=== PATIENT | female | born 1980 | race Caucasian/White ===

== ENCOUNTER 2023-08-18 10:53 | Outpatient (AMB) | payer OTHER, SELFPAY ==
--- NOTE | 2023-08-18 11:42 | A.OFFVIS_ITS ---
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 She is a 43-year-old female who presents to the office for evaluation of 2 separate issues. The 1st being neck pain radiating down to both of her arms about to the level of her elbow with reports of numbness of her hands with feelings of weakness that has been going on for about 10 months. She reports fine motor movement issues as well. She underwent some basic conservative treatment in the form of tincture of time, [id number] pain medications, tramadol as well as a cortisone shot and physical therapy. Nothing seem to be helping and it has been only getting worse over the last year. She reports balance issues as well. She has an MRI done at [facility] showing moderate to severe spinal cord compression at C4-5 as well as disc degeneration at C5-6. The 2nd issue is that she has had a longstanding problem with pain in her back going into her legs, initially was just on the right side but now has progressed to be bilateral. It is aggravated with standing and walking and goes away when she sits down. Through the years she has been through neonatal intensive care nurse, cortisone injections, PT and medication trials etc. She was scheduled to have surgery twice with Dr. Bauer at [facility] but this was canceled because of anemia that she developed. It is unclear what the source of the anemia was but it was an iron deficiency anemia that has now come back to baseline at and reportedly been stable for the last 6 months. She wants to see if there is any chance we could offer her surgery on that. She has an MRI done at [facility] showing progressing lumbar stenosis at L2-3 moderate L4-5 severe. PMH: She has a history of osteoarthritis, tendinitis in her left shoulder, anemia of unknown source, she had apparently had numbers hemoglobin as low as 8 at 1 point but it has come back up on its own and has been stable for the last 6 months. She has history of anxiety, bipolar and borderline personality disorder., history of , hypothyroidism Social hx: She does not smoke Medications: Tramadol, Lyrica, diclofenac, Calcitrol, iron, vitamin-C, hydroxychloroquine, Colace, levothyroxine, Salonpas patches Allergies: None Physical exam: She walks with a cane with an antalgic gait, motor examination is difficult secondary to pain with movement all over her body. There is some weakness of her right hand. Reflexes are normal, no Pabon's, no clonus. She does have some limitations with getting out of a chair secondary to pain. Imaging review: 2 images to review, the 1st being cervical spine MRI done in May of 2023 at [facility] in this shows reversal of the normal lordotic curvature of the cervical spine with moderate to severe central canal stenosis and bilateral foraminal stenosis at C4-5, there is also moderate disc degeneration and foraminal narrowing at C5-6. There is no cord signal change. The 2nd study is done at [facility] done in 2022 in this is a lumbar MRI showing congenitally narrow spinal canal with moderate to severe stenosis, worse on the left secondary to disc bulge at L2-3, and severe stenosis at L4-5. Impression: 43-year-old female presents to the office today for evaluation of 1 year of neck pain radiating down into her arms with feelings of weakness and numbness in her hands who has moderate to severe stenosis at C4-5 and bilateral foraminal stenosis at C5-6. This is something typically Dr. Berrios would offer either anterior cervical fusion versus total disc arthroplasty. Because of the feelings of numbness of the hands with fine motor movement symptom, I think C4-5 is probably the main symptom generator, but it is hard to ignore C5-6 as well as that can give symptoms down into the hands. I will speak to Dr. Berrios and show him the MRI get back to the patient. We did discuss risks, benefits of surgery including but not limited to persistent neurological symptoms, persistent neck pain, vocal hoarseness, dysphagia, neck pain, hardware complications, injury to neck vessels etc.. The 2nd issue we discussed is her neurogenic claudication secondary stenosis at L2-3 and L4-5. She has been offered surgery on this at [facility], but they have been putting it off due to anemia. She is frustrated because she called the mid back and told him that things are stable now when she would like to proceed, but they have been uncooperative with rescheduling for her. She is interested to see if Dr. Berrios will consider this. I think because of the progression in the severity of the stenosis he would likely offer her decompression at both the L2-3 and the L4-5 level. We did discuss the risks and benefits of this as well. Obviously we would like to treat the neck 1st because of the spinal cord compression. Once I have a chance to speak with Dr. Berrios I will finalize the plans with the patient regarding these 2 issues. Thank you for allowing us to care for your patient. The total time spent with this visit with this patient was 65 minutes reviewing history, physical exam, cervical and lumbar imaging review, and implementation of treatment plan or further diagnostic testing Chaim Berrios MD,PhD [facility] Coding Level of Care Code New Pt Level 5 (19091) Diagnoses Cervical radiculopathy M54.12 Lumbar stenosis M48.061
== END 2023-08-18 12:44 | disposition home or self-care (01) ==
PROVIDERS: PCP Physician Assistant; Referring Provider Physician Assistant; Visit Provider Physician Assistant
DX: M54.12 Radiculopathy, cervical region (principal); M48.061 Spinal stenosis, lumbar region without neurogenic claudication
CPT/HCPCS: 99205

== ENCOUNTER → 2023-08-18 10:53 | Outpatient (BNVA) | payer OTHER, SELFPAY | PROVIDERS: PCP Physician Assistant; Referring Provider Physician Assistant; Visit Provider Physician Assistant ==

== ENCOUNTER → 2023-10-10 | Outpatient (BNV) | payer OTHER, SELFPAY | PROVIDERS: PCP Physician Assistant; Visit Provider Internal Medicine | DX: Z01.818 Encounter for other preprocedural examination (principal); M54.12 Radiculopathy, cervical region | CPT/HCPCS: 93010 ==

== ENCOUNTER 2023-10-17 14:56 | Outpatient (AMB) | payer OTHER, SELFPAY ==
--- NOTE | 2023-10-17 15:04 | HO.SPINEOV ---
Intake Intake Visit Reasons: Meet Dr. Berrios/discuss surgery Intake Note: is here today to discuss surgical options. 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 We went over the scheduled anterior diskectomy and fusion. I described the procedure, possible complications and expected postoperative course. All questions were answered. We also briefly discussed the lumbar pathology that needs to be addressed. The plan is to schedule her for lumbar surgery after her 1st postoperative visit following the cervical fusion. Rich Berrios MD, PhD Spine Fellowship Trained Neurosurgeon Director, [facility] Coding Level of Care Code Est Pt Level 3 (75379) Diagnoses Cervical radiculopathy M54.12
== END 2023-10-17 16:13 | disposition home or self-care (01) ==
PROVIDERS: PCP Physician Assistant; Visit Provider Neurological Surgery
DX: M54.12 Radiculopathy, cervical region (principal)
CPT/HCPCS: 99213

== ENCOUNTER → 2023-10-17 14:56 | Outpatient (BNVA) | payer OTHER, SELFPAY | PROVIDERS: PCP Physician Assistant; Visit Provider Neurological Surgery | DX: M54.12 Radiculopathy, cervical region (principal) | CPT/HCPCS: 99212 ==

== ENCOUNTER 2023-10-24 05:59 | Day surgery (SDC) | payer OTHER, SELFPAY ==
--- NOTE | 2023-10-10 | ECG_ITS ---
Test Reason : PREOP Blood Pressure : / mmHG Vent. Rate : 065 BPM Atrial Rate : 065 BPM P-R Int : 158 ms QRS Dur : 070 ms QT Int : 384 ms P-R-T Axes : 046 011 007 degrees QTc Int : 399 ms Normal sinus rhythm with sinus arrhythmia Low voltage QRS Borderline ECG No previous ECGs available Referred By: Rocio Velez Electronically Signed By:SANAM BAI
[2023-10-10 13:47] VITALS: BP 120/71; PULSE 79; RESP 18; O2SAT 99; BMI 34.9
--- NOTE | 2023-10-10 13:57 | HO.ANESPROP2 ---
Documented by User: Rocio Velez NP 10/20/23 11:14 HPI - Anesthesia Eval Consult details Narrative: 43yo F for C4-5 Ant Cerv Discectomy w/ fusion, 10/24/23 No recent illness No CP/SOB with minimal activity. Limited to pain Tramadol for pain PMFSH Active Problems Active Problems: All Active Problems (Updated 10/10/23 @ 13:36 by Velvet Restrepo RN) Lumbar stenosis (Acute) Cervical radiculopathy (Acute) Past Medical History Medical History History of headache Numbness Murmur Osteoarthritis Bipolar 1 disorder Cervicalgia Spinal stenosis Depression Borderline personality disorder Constipation Low vitamin D level Anemia Persistent moderate somatic symptom disorder Class II obesity Sleep disturbance Anxiety Thyroid disease Back pain Family History Family history of problems with anesthesia: No Surgical History Surgical History H/O colonoscopy Hx of section History of Problems with Anesthesia: No Social History Social History Are you a primary child care specialist to a significant other at home: No Do you presently have visiting nurse or other home services: No Patient Tobacco Use Status: Former Tobacco user Quit Date: 2019 Use of substances other than those prescribed or required for medical reasons: No Have you been hit, kicked, punched, or otherwise hurt by someone within the past year? If so, by whom?: No Are you DNR?: No Advance Directives: No Advance Directives Information Provided: Yes Advance Directives on File: No Recently lost weight without trying: No Eating poorly because of decreased appetite: No Nutrition Risks: No Nutritional Risk Patient : No : No Poor oral hygiene: No Meds Allergies Allergy/AdvReac Type Severity Reaction Status Date / Time No Known Allergies Allergy Verified 10/24/23 06:11 Home Medications Medication Instructions Recorded Confirmed Last Taken Type calcitriol 0.25 mcg capsule 0.5 mcg PO DAILY 10/09/23 10/10/23 Unknown History diclofenac sodium 1 % topical gel 2 g topical BID 10/09/23 10/10/23 Unknown History docusate sodium 100 mg capsule 100 mg PO BID 10/09/23 10/10/23 Unknown History ferrous gluconate 324 mg (38 mg 324 mg PO QAM 10/09/23 10/10/23 Unknown History iron) tablet polyethylene glycol 3350 17 gram 17 g PO DAILY 10/09/23 10/10/23 Unknown History oral powder packet acetaminophen 500 mg tablet 1,000 mg PO TID PRN Pain 10/10/23 10/10/23 Unknown History ascorbic acid (vitamin C) 500 mg 500 mg PO DAILY 10/10/23 10/10/23 Unknown History tablet (Vitamin C) bupropion HCl 150 mg 24 hr tablet, 150 mg PO QAM 10/10/23 10/10/23 Unknown History extended release hydroxychloroquine 200 mg tablet 200 mg PO BID 10/10/23 10/10/23 Unknown History levothyroxine 137 mcg tablet 137 mcg PO DAILY 10/10/23 10/24/23 10/24/23 History naloxone 4 mg/actuation nasal spray 4 mg intranasal DAILY PRN Opioid 10/10/23 10/10/23 Unknown History Overdose pregabalin 150 mg capsule 150 mg PO BID 10/10/23 10/10/23 Unknown History psyllium 1 packet PO DAILY 10/10/23 10/10/23 Unknown History quetiapine 25 mg tablet 25 mg PO BEDTIME 10/10/23 10/10/23 Unknown History tramadol 50 mg tablet 50 mg PO QID PRN pain 10/10/23 10/10/23 Unknown History Exam Height,Weight and Vital Signs: Height 5 ft 2 in Weight 86.636 kg Last Vital Signs Pulse 79 10/10/23 13:47 Resp 18 10/10/23 13:47 BP 120/71 10/10/23 13:47 Pulse Ox 99 10/10/23 13:47 O2 Del Method Room Air 10/10/23 13:47 Airway Mallampati Class: I TM Dist: >3cm Neck ROM: Limited Loose/Missing/Broken Teeth: No Heart: RRR Lungs: CTAB Assessment and Plan Assessment Anesthesia Assessment: Anesthesia Plan Discussed and PAT Visit Final Anesthetic Review Family History of Problems with Anesthesia: No History of Problems with Anesthesia: No Documented by User: Sheldon Solitario MD 10/24/23 08:09 FOR[facility]LY [facility], [facility] Past Medical History Medical History History of headache Numbness Murmur Osteoarthritis Bipolar 1 disorder Cervicalgia Spinal stenosis Depression Borderline personality disorder Constipation Low vitamin D level Anemia Persistent moderate somatic symptom disorder Class II obesity Sleep disturbance Anxiety Thyroid disease Back pain Surgical History Surgical History H/O colonoscopy Hx of section Social History Social History Are you a primary child care specialist to a significant other at home: No Do you presently have visiting nurse or other home services: No Patient Tobacco Use Status: Former Tobacco user Quit Date: 2019 Use of substances other than those prescribed or required for medical reasons: No Have you been hit, kicked, punched, or otherwise hurt by someone within the past year? If so, by whom?: No Are you DNR?: No Advance Directives: No Advance Directives Information Provided: Yes Advance Directives on File: No Recently lost weight without trying: No Eating poorly because of decreased appetite: No Nutrition Risks: No Nutritional Risk Patient : No : No Poor oral hygiene: No Meds Allergies Allergy/AdvReac Type Severity Reaction Status Date / Time No Known Allergies Allergy Verified 10/24/23 06:11 Home Medications Medication Instructions Recorded Confirmed Last Taken Type calcitriol 0.25 mcg capsule 0.5 mcg PO DAILY 10/09/23 10/10/23 Unknown History diclofenac sodium 1 % topical gel 2 g topical BID 10/09/23 10/10/23 Unknown History docusate sodium 100 mg capsule 100 mg PO BID 10/09/23 10/10/23 Unknown History ferrous gluconate 324 mg (38 mg 324 mg PO QAM 10/09/23 10/10/23 Unknown History iron) tablet polyethylene glycol 3350 17 gram 17 g PO DAILY 10/09/23 10/10/23 Unknown History oral powder packet acetaminophen 500 mg tablet 1,000 mg PO TID PRN Pain 10/10/23 10/10/23 Unknown History ascorbic acid (vitamin C) 500 mg 500 mg PO DAILY 10/10/23 10/10/23 Unknown History tablet (Vitamin C) bupropion HCl 150 mg 24 hr tablet, 150 mg PO QAM 10/10/23 10/10/23 Unknown History extended release hydroxychloroquine 200 mg tablet 200 mg PO BID 10/10/23 10/10/23 Unknown History levothyroxine 137 mcg tablet 137 mcg PO DAILY 10/10/23 10/24/23 10/24/23 History naloxone 4 mg/actuation nasal spray 4 mg intranasal DAILY PRN Opioid 10/10/23 10/10/23 Unknown History Overdose pregabalin 150 mg capsule 150 mg PO BID 10/10/23 10/10/23 Unknown History psyllium 1 packet PO DAILY 10/10/23 10/10/23 Unknown History quetiapine 25 mg tablet 25 mg PO BEDTIME 10/10/23 10/10/23 Unknown History tramadol 50 mg tablet 50 mg PO QID PRN pain 10/10/23 10/10/23 Unknown History Exam Airway Loose/Missing/Broken Teeth: Yes Assessment and Plan Final Anesthetic Review NPO: Yes ASA Class: II Final Preanesthetic Review: No Changes in Pt Med Stat, Meds/Allgs Chart Reviewed, Consent Obtained/Reviewed and Anes Risks/Benef Reviewed Patient Risk: Low Procedure Risk: Low Anesthetic Plan Anesthetic Plan: GA Disposition: Standard PACU
[2023-10-10 15:17] LABS: Anion Gap 11 (12-20); Blood Urea Nitrogen 11 mg/dL (9-16); Calcium 9.4 mg/dL (8.4-10.2); Carbon Dioxide 27 mmol/L (22-29); Chloride 106 mmol/L (96-108); Creatinine Clr Calc Pharmacy 96.2; Estimated Glomerular Filt Rate > 60; Glucose Random 82 mg/dL (60-115); Potassium 4.1 mmol/L (3.3-5.1); Sodium 140 mmol/L (135-145)
[2023-10-24] VITALS (18 sets, daily range): BP systolic 110–133; BP diastolic 62–81; PULSE 73–87; RESP 14–20; TEMP 36.4–36.8; O2SAT 96–100
--- NOTE | ~2023-10-24 | FL_ITS ---
EXAMINATION: XR FLUOROSCOPY WITH IMAGES CLINICAL INFORMATION: Cervical discectomy with fusion. COMPARISON: None available. TECHNIQUE: Fluoroscopy Supervised By: Dr. Rich Berrios. Fluoroscopy Time: 0.1 minute. Cumulative Dose: 2.42 mGy. DAP: 0.370 Gycm2. Images: 2. FINDINGS: Fluoroscopy guidance provided for ACDF at C4-C5 FL/FL guidance in OR IMPRESSION: Fluoroscopy guidance for ACDF at C4-C5.
[2023-10-24 06:31] LABS: UPreg QC Valid YES; Urine Pregnancy NEGATIVE (NEGATIVE)
[2023-10-24] MEDS: Lactated Ringers 1,000 ML 100 ML IVCONT (06:33)
[2023-10-24] MEDS: Gabapentin 300 MG CAPSULE PO (06:33)
[2023-10-24] MEDS: methocarbamoL 750 MG TABLET PO (06:33)
--- NOTE | 2023-10-24 06:57 | MHC.SHP ---
Pre-Procedural Eval Section A Date of Service: 10/24/23 The patient is an INPATIENT: No Changes since office visit: No Cold of Flu in the past 2 weeks, No New Medical Problems, No Changes in Medication and No Patient answered all questions The History & Physical has been completed within 30 days and I have reviewed it.: No Section B Chief Complaint: Radiculopathy, cervical region Allergies: Allergies Allergy/AdvReac Type Severity Reaction Status Date / Time No Known Allergies Allergy Verified 10/24/23 06:11 Review of Systems Sugical H&P ROS: Negative: Constitution, Cardiovascular, Respiratory, Neurological, Psychiatric, Hem-Onc, Allergic/Immunologic, Gastrointestinal, Genitourinary, Musculoskeletal, Integumentary, Endocrine and Eyes/Ears/Nose/Throat Exam Surgical H&P Exam: Not Evaluated: HEENT, Not Evaluated: Heart, Not Evaluated: Lungs, Not Evaluated: Extremities, Not Evaluated: Abdomen, Not Evaluated: Skin and Not Evaluated: Neurological Plan Diagnosis/Plan: Unchanged I have reviewed the history and physical and performed a pertinent physical examination on my patient. No changes have occurred unless specified. C4-5 anterior cervical diskectomy and fusion Time Spent With Patient Time: Total time managing care of this patient today _10___ minutes.
--- NOTE | 2023-10-24 09:12 | PM.DS ---
DS: Providers Provider Date of Service: 10/24/23 Date of discharge: 10/24/23 Primary care physician: GERA Schafer Admitting clinician: Rich Berrios DS: Diagnosis Discharge Diagnosis (1) Cervical radiculopathy: Status: Acute DS: Summary Time Attestation Discharge coordination time: Less than 30 minutes Quality: Safe Use of Opioids Does Pt have an Active Cancer Diagnosis on the Problem List?: No Quality: Stroke Does the patient have a stroke diagnosis?: No Physical Exam Vital Signs: Vital Signs: Last Vital Signs Temp 97.5 F 10/24/23 06:31 Pulse 85 10/24/23 06:31 Resp 16 10/24/23 06:31 BP 124/78 10/24/23 06:31 Pulse Ox 97 10/24/23 06:31 O2 Del Method Room Air 10/24/23 06:31 BMI result Body Mass Index 34.9 DS: Data Data Completed and Pending Labs on day of discharge: Laboratory Results - last 24 hr 10/24/23 06:15 Urine Test NEGATIVE Discharge Plan Discharge Patient Disposition: Home, Self-Care Referrals: Salinas Ang PA [Primary Care Provider] - 1 Week Discharge Medications: No Action polyethylene glycol 3350 17 gram Powder In Packet 17 g PO DAILY docusate sodium 100 mg capsule 100 mg PO BID calcitriol 0.25 mcg capsule 0.5 mcg PO DAILY ferrous gluconate 324 mg (38 mg iron) tablet 324 mg PO QAM diclofenac sodium 1 % gel 2 g topical BID levothyroxine 137 mcg tablet 137 mcg PO DAILY pregabalin 150 mg capsule 150 mg PO BID ascorbic acid (vitamin C) [Vitamin C] 500 mg Tablet 500 mg PO DAILY hydroxychloroquine 200 mg tablet 200 mg PO BID acetaminophen 500 mg tablet 1,000 mg PO TID PRN (Reason: Pain) tramadol 50 mg tablet 50 mg PO QID PRN (Reason: pain) naloxone 4 mg/actuation spray,non-aerosol 4 mg intranasal DAILY PRN (Reason: Opioid Overdose) bupropion HCl 150 mg Tablet Extended Release 24 Hr 150 mg PO QAM quetiapine 25 mg tablet 25 mg PO BEDTIME Metamucil Packet 1 packet PO DAILY Rx Instructions: mix into at least 8 oz of water or juice before administering
--- NOTE | 2023-10-24 09:13 | PM.DS ---
DS: Providers Provider Date of Service: 10/24/23 Primary care physician: GERA Schafer DS: Diagnosis Discharge Diagnosis (1) Cervical radiculopathy: Status: Acute DS: Summary Time Attestation Discharge coordination time: Less than 30 minutes Quality: Safe Use of Opioids Does Pt have an Active Cancer Diagnosis on the Problem List?: No Quality: Stroke Does the patient have a stroke diagnosis?: No Physical Exam Vital Signs: Vital Signs: Last Vital Signs Temp 97.5 F 10/24/23 06:31 Pulse 85 10/24/23 06:31 Resp 16 10/24/23 06:31 BP 124/78 10/24/23 06:31 Pulse Ox 97 10/24/23 06:31 O2 Del Method Room Air 10/24/23 06:31 BMI result Body Mass Index 34.9 DS: Data Data Completed and Pending Labs on day of discharge: Laboratory Results - last 24 hr 10/24/23 06:15 Urine Test NEGATIVE Discharge Plan Discharge Patient Disposition: Home, Self-Care Referrals: Salinas Ang PA [Primary Care Provider] - 1 Week Discharge Medications: New docusate sodium [Colace] 100 mg capsule 100 mg PO BID Qty: 20 0RF oxycodone 5 mg tablet 5 mg PO Q4H PRN (Reason: pain) Qty: 30 0RF Rx Instructions: Partial Fill upon patient request. Continued polyethylene glycol 3350 17 gram Powder In Packet 17 g PO DAILY docusate sodium 100 mg capsule 100 mg PO BID calcitriol 0.25 mcg capsule 0.5 mcg PO DAILY ferrous gluconate 324 mg (38 mg iron) tablet 324 mg PO QAM diclofenac sodium 1 % gel 2 g topical BID levothyroxine 137 mcg tablet 137 mcg PO DAILY pregabalin 150 mg capsule 150 mg PO BID ascorbic acid (vitamin C) [Vitamin C] 500 mg Tablet 500 mg PO DAILY hydroxychloroquine 200 mg tablet 200 mg PO BID acetaminophen 500 mg tablet 1,000 mg PO TID PRN (Reason: Pain) tramadol 50 mg tablet 50 mg PO QID PRN (Reason: pain) naloxone 4 mg/actuation spray,non-aerosol 4 mg intranasal DAILY PRN (Reason: Opioid Overdose) bupropion HCl 150 mg Tablet Extended Release 24 Hr 150 mg PO QAM quetiapine 25 mg tablet 25 mg PO BEDTIME psyllium Packet 1 packet PO DAILY Rx Instructions: mix into at least 8 oz of water or juice before administering Discharge Orders: Discharge Order (Routine); Ordered 10/24/23 Ordered By: Chaim Black Diet: Advance to usual diet Activity on Discharge: As tolerated Activity Restrictions/Additional Instructions: After your spinal surgery we ask you to observe the following restrictions/guidelines: Activity: It is normal to feel some discomfort as you increase your activity, but that will improve with time. We ask you avoid heavy lifting or acitivities that cause pain. As a general rule, 8lbs is a safe limit for lifting right after surgery. Walk as much as you feel comfortable but not to exhaustion. You will feel extra tired the first few days after surgery. Stay well hydrated. It is OK to walk up and down stairs You may return to driving when you are off narcotics (such as vicodin, oxycodone, dilaudid, etc), and you are back to normal functional capacity. If you have any concerns please check with office before driving. Return to work is specific to each patient and each surgery, so please speak with your doctor/PA at first follow up. Please bring paperwork such as FMLA at that time if you need it filled out. Medications: For optimum pain control, it is best to start with a combination of 500 mg of Tylenol every 4 hours with 600 mg of Motrin every 8 hours, and use narcotics as needed in between for breakthrough pain. We will give you a short supply of narcotics after surgery (usually one weeks worth). If you need more please call the office but do not use more than prescribed. You will need to give our office 48 hours notice if you need narcotics refilled and we do not fill narcotics on weekends or evenings. If you are on a narcotic, it is a good idea to take a stool softener such as colace or senna to avoid constipation If you take blood thinner such as aspirin, Plavix, Coumadin, Effient, Eliquis etc for conditions such as Afib, DVT, Pulmonary embolus, coronary disease, stents etc please speak with your surgeon about specific details as to when you can resume these medications. You can resume NSAIDs on post op day 1 (eg: Motrin, Naproxen, etc). Follow up: Please call the office, , after surgery to arrange a 3 week follow up for wound check. Wound Care: You may remove your dressing on the first day after surgery. You may leave open to air. Please do not remove the steri strips underneath. they will fall off on their own in one week. IT IS NORMAL FOR THE WOUND TO OOZE OR BE BLOODY FOR A FEW DAYS AFTER SURGERY. IF THIS HAPPENS JUST PLACE NEW DRESSING OVER IT TO AVOID STAINING CLOTHES. You may shower on post op day # 1 We ask that you do not let the water soak the wound. If it does get wet, just towel dry lightly. Please do not scrub your incision or place any type of chemical/ointment on the wound. No tub baths, pools or jacuzzis for one month. If you have any leaking or redness from your wound, or fevers, please call office
--- NOTE | 2023-10-24 09:17 | P.OP_ITS ---
Operative Note Operative Note Date of Service: 10/24/23 Narrative: Preoperative Diagnosis: Cervical myelopathy Procedure: C4-5Anterior discectomy, arthrodesis and implantation cage ; C4- 5anterior instrumentation ; local autograft; microscope Informed Consent was obtained for this operation. I have explained the nature, purpose and benefits of the operation. I have discussed the risks and benefit of the operation including possible complications or adverse events with patient/family. Alternative(s) were discussed with the patient with their relative benefits and risks as well as the consequences of not accepting the operation were included in obtaining consent. Surgeon: ELVIRA ORELLANA MD, PHD Procedure Assisted By: manuel Booth Description of Procedure: [] The procedure complications were explained. The patient was consented. The patient was brought to the operating room and endotracheally intubated. The patient was put in supine position with slight extension of the neck. Prep and drape was done followed by timeout. A mid cervical incision was made followed by opening of the platysma. The prevertebral fascia was reached following the natural planes while the physician administrative office assistant provided manual retraction. The prevertebral fascia was opened to expose the disc space. A spinal needle was placed in the disk space to confirm the correct level with xray. The longus colli muscles were released bilaterally and a self retaining retractor was inserted. Two [place] pins were placed in the C4-C5 vertebral bodies and distraction was give over the interspace. The discectomy was completed toward the posterior annulus of the disc. The microscope was brought in. The remainder of the discectomy was completed. The posterior ligament was opened and resected to expose the underlying dura. Osteophytes were resected from the body of C4 and C5and saved for autograft. Bilateral foraminotomies were done. The endplates were prepared after which a 6 mm cage filled with autograft was inserted into the disc space. A separate attached plate was locked down with 2 x 14 mm screw and 1 time 12 mm screw as anterior instrumentation. Final x-rays in AP and lateral projection showed a satisfactory position of the implant. The physician administrative office assistant took over. The [place] pin was removed. Hemostasis was done. He closed the incision in 2 layers with a 3-0 Vicryl. Steri-Strips used to approximate incision. An OpSite with Tegaderm was used to cover the incision. All sponge and needle counts were correct. Patient was extubated and transported in stable is to recovery room. Anesthesia: General Estimated Blood Loss (ml): minimal Duration of Surgery: 60 minute Postoperative Plan: Discharge home Complications: None
[2023-10-24] MEDS: HYDROmorphone HCl 0.5 MG/0.5 ML SYRINGE 0.25 MG IVPUSH ×4 (09:35→09:50)
[2023-10-24] MEDS: oxyCODONE HCl Immed Release 5 MG TABLET PO (10:01)
[2023-10-24] MEDS: fentaNYL citrate/PF 100 MCG/2 ML VIAL 50 MCG IVPUSH (10:05)
[2023-10-24] MEDS: ondansetron HCL 4 MG/2 ML VIAL IVPUSH (11:56)
== END 2023-10-24 13:16 | disposition home or self-care (01) ==
PROVIDERS: Nurse Practitioner; PCP Physician Assistant; Visit Provider Neurological Surgery
PROC: (CPT 22551; principal; 2023-10-24 07:30)
DX: M54.12 Radiculopathy, cervical region (principal); M48.02 Spinal stenosis, cervical region; G95.9 Disease of spinal cord, unspecified; R20.0 Anesthesia of skin; M48.061 Spinal stenosis, lumbar region without neurogenic claudication; M19.012 Primary osteoarthritis, left shoulder; M77.8 Other enthesopathies, not elsewhere classified; R26.89 Other abnormalities of gait and mobility; D64.9 Anemia, unspecified; F31.9 Bipolar disorder, unspecified; F41.1 Generalized anxiety disorder; F60.3 Borderline personality disorder; E03.9 Hypothyroidism, unspecified; Z79.899 Other long term (current) drug therapy; Z99.89 Dependence on other enabling machines and devices
CPT/HCPCS: 22551; 22853; 20936; 22845; 36415; 80048; 81025; 93005; C1713; J0131; J0690; J1100; J1170; J2250; J2405; J2704; J3010

== ENCOUNTER → 2023-10-24 05:59 | Outpatient (BNV) | payer OTHER, SELFPAY | PROVIDERS: PCP Physician Assistant; Visit Provider Physician Assistant | DX: M54.12 Radiculopathy, cervical region (principal) | CPT/HCPCS: 20936; 22551; 22845; 22853; 99499 ==

== ENCOUNTER 2023-11-15 13:11 | Outpatient (AMB) | payer OTHER, SELFPAY ==
--- NOTE | 2023-11-15 13:24 | A.SPINEOV_ITS ---
Intake Intake Visit Reasons: 1st post op Intake Note: is here today for her 1st post-op visit. Allergies No Known Allergies Allergy (Verified 10/24/23 06:11) Assessment & Plan Assessment & Plan (1) S/P spinal surgery: Code(s): Z98.890 - Other specified postprocedural states Plan Procedure: C4-5 ACDF Pratibha comes in today for her 1st postoperative visit. She reports she is very satisfied with the surgery and feels much better than she did preoperatively. She reports that all of the numbness she previously had has gone away. She does still report posterior neck pain with pain in her shoulder which she describes as a pulling type constant pain. We discussed how this is one of the most common postoperative complaint after ACDF surgery. She was encouraged this is very normal. She continues to utilize [id number] pain medications with good relief of her pain. She reports no other questions/concerns. No neurological deficits. Patient is able to ambulate well, rises from a seated position without difficulty. Anterior incision site is closed, well healing, with no signs of drainage. We will follow-up with the patient in 6 weeks for her 2nd postoperative visit. At that time we will get x-rays to review with the patient. Rell Berrios MD,PhD [facility] Coding Level of Care Code Global (63844) Diagnoses S/P spinal surgery Z98.890
== END 2023-11-15 14:33 | disposition home or self-care (01) ==
PROVIDERS: PCP Physician Assistant; Visit Provider Physician Assistant
DX: Z98.890 Other specified postprocedural states (principal)
CPT/HCPCS: 99024

== ENCOUNTER → 2023-11-15 13:11 | Outpatient (BNVA) | payer OTHER, SELFPAY | PROVIDERS: PCP Physician Assistant; Visit Provider Physician Assistant | DX: Z98.890 Other specified postprocedural states (principal) | CPT/HCPCS: 99212 ==

== ENCOUNTER 2023-12-27 12:34 | Outpatient (AMB) | payer OTHER, SELFPAY ==
--- NOTE | 2023-12-27 13:13 | MHC.OFFVIS ---
Intake Intake Visit Reasons: 2nd post op with xrays Direct Sales Representative Required: No Allergies No Known Allergies Allergy (Verified 10/24/23 06:11) PFS Medical History History of headache Numbness Murmur Osteoarthritis Bipolar 1 disorder Cervicalgia Spinal stenosis Depression Borderline personality disorder Constipation Low vitamin D level Anemia Persistent moderate somatic symptom disorder Class II obesity Sleep disturbance Anxiety Thyroid disease Back pain Surgical History H/O colonoscopy Hx of section Social History Are you a primary health careers instructor to a significant other at home: No Do you presently have visiting nurse or other home services: No Patient Tobacco Use Status: Former Tobacco user Quit Date: 2019 Assessment & Plan Assessment & Plan (1) Cervical radiculopathy: Code(s): M54.12 - Radiculopathy, cervical region Plan Procedure: C4-5 ACDF Pratibha comes in today for her 2nd postoperative visit. Previously she had reported that she had very good outcomes after surgery. She had complete resolution of her radiculopathy and only very minimal posterior neck pain. She states she was very happy surgery and was glad that she went through the process. Unfortunately in the last few weeks she is developed new onset posterior neck pain radiating into her bilateral shoulders which she describes as ?severe.? She reports that it significantly worsened yesterday and is currently causing her a great deal of distress. On examination she has 4/5 strength of her upper extremities diffusely which likely his pain limiting. Her incision site appears good, well healing, and without any drainage or erythema. She has no myelopathic reflexes and no upper extremity radiculopathy. I reviewed her x-ray imaging from today which shows a stable placement of her cervical C4-5 cage and instrumentation. Due to her intense posterior neck pain that shoots into her bilateral shoulders I will be sending her for a cervical MRI to look for suspected new nerve impingement. She could have an impingement higher up in the cervical spine that would match this dermatomal distribution. Rell Berrios MD,PhD [facility] Orders: Orders MR cervical spine wo con Today M54.12 - Radiculopathy, cervical region XR cervical spine 4V Today M54.12 - Radiculopathy, cervical region Coding Level of Care Code Global (68428) Diagnoses Cervical radiculopathy M54.12
== END 2023-12-27 13:38 | disposition home or self-care (01) ==
PROVIDERS: PCP Physician Assistant; Visit Provider Physician Assistant
DX: M54.12 Radiculopathy, cervical region (principal)
CPT/HCPCS: 99024

== ENCOUNTER 2023-12-27 12:34 | Outpatient (REF) | payer OTHER, SELFPAY ==
--- NOTE | ~2023-12-27 | XR_ITS ---
EXAMINATION: XR CERVICAL SPINE CLINICAL INFORMATION: Cervical radiculopathy. COMPARISON: None available. TECHNIQUE: Frontal and lateral (neutral, flexion and extension) views of the cervical spine were obtained. FINDINGS: Vertebral body heights and alignment are normal. There has been a prior anterior fusion and discectomy at C4-C5, with intact Low Profile fixator device. No hardware failure or loosening is seen. There is mild anterior disc space narrowing at C5-C6. No acute fracture or spondylolisthesis is seen. There is no instability with flexion or extension. There is mild anterior spondylosis at C3-C4 through C6-C7. The posterior elements are intact. The paravertebral soft tissues are unremarkable. XR/XR cervical spine 4V IMPRESSION: 1. There is well-maintained alignment status-post C4-C5 anterior fusion and discectomy. No hardware failure or loosening is seen. 2. There is mild degenerative disc disease at C5-C6. 3. There is multi-level mild anterior cervical spondylosis.
== END 2023-12-27 12:35 | disposition home or self-care (01) ==
LOC: HO.HOSX 12:34
PROVIDERS: PCP Physician Assistant; Visit Provider Physician Assistant
DX: M54.12 Radiculopathy, cervical region (principal); Z47.89 Encounter for other orthopedic aftercare
CPT/HCPCS: 72050; 99212

== ENCOUNTER 2024-01-25 18:04 | Outpatient (REF) | payer OTHER, SELFPAY ==
--- NOTE | ~2024-01-25 | MR_ITS ---
EXAMINATION: MR CERVICAL SPINE WITHOUT CONTRAST CLINICAL INFORMATION: Neck adenopathy COMPARISON: Cervical radiographs 12/26/2023 TECHNIQUE: Only sagittal T2 and T1 sequences of the cervical spine were obtained. Examination was terminated early secondary to patient discomfort. FINDINGS: Reversal of normal cervical lordosis. Grade 1 anterolisthesis of C2-C3, T1-T2, T2-T3. Cervical vertebral body heights are maintained. Postsurgical changes from discectomy and fusion at C4-C5. No gross spinal cord signal abnormality on the sagittal T2 sequence. C2-C3: Disc bulge. No high-grade spinal canal stenosis. C3-C4: Disc osteophyte complex with central disc extrusion extending superiorly. At least mild narrowing of the thecal sac. C4-C5: Postsurgical changes. Posterior osteophytic ridging. At least mild narrowing of the thecal sac. C5-C6: Disc osteophyte complex with right subarticular/foraminal disc extrusion that is suboptimally characterized. Probable moderate canal stenosis. Narrowing of the right C5-C6 neural foramen is suspected, but incompletely characterized. C6-C7: Disc osteophyte complex with mild canal stenosis. C7-T1: Disc osteophyte complex. The spinal canal is not significantly narrowed. T1-T2: Disc bulge and osteophytic ridging without significant spinal canal stenosis. Mild narrowing of the right neural foramen. Probable moderate to severe left-sided neural foraminal stenosis. T2-T3: Disc bulge and osteophytic ridging without significant spinal canal stenosis. Mild to moderate right and mild left neural foraminal stenosis. T3-T4: Central disc protrusion indents the ventral thecal sac which appears mildly narrowed. The neural foramen are patent. MR/MR cervical spine wo con IMPRESSION: Examination was terminated early secondary to patient discomfort. Only sagittal T2 and T1 sequences of the cervical spine were obtained. Within this constraint, at C5-C6 there is a disc osteophyte complex and right subarticular/foraminal disc extrusion with probable moderate canal stenosis. Narrowing of the right C5-C6 neural foramen is suspected but not diagnostically assessed on this examination. At T1-T2 there is moderate to severe left neural foraminal stenosis. Additional degenerative changes of the cervical and thoracic spine as described above.
== END 2024-01-25 18:05 | disposition home or self-care (01) ==
LOC: HO.MRI 18:04
PROVIDERS: PCP Physician Assistant; Visit Provider Physician Assistant
DX: M54.12 Radiculopathy, cervical region (principal)
CPT/HCPCS: 72141

== ENCOUNTER 2024-02-29 08:21 | Day surgery (SDC) | payer OTHER, SELFPAY ==
[2024-02-20 13:31] VITALS: BP 126/73; PULSE 89; RESP 16; O2SAT 97; BMI 34.4
--- NOTE | 2024-02-28 11:56 | HO.ANESPROP2 ---
Documented by User: Rocio Velez NP 02/28/24 11:58 HPI - Anesthesia Eval Consult details Narrative: 43yo F for Ant Cerv Discectomy w/ fusion PAT with Dr Kapadia 02/20/24 PMFSH Active Problems Active Problems: All Active Problems S/P spinal surgery (Acute) Lumbar stenosis (Acute) Cervical radiculopathy (Acute) Past Medical History Medical History History of headache Numbness Murmur Osteoarthritis Bipolar 1 disorder Cervicalgia Spinal stenosis Depression Borderline personality disorder Constipation Low vitamin D level Anemia Persistent moderate somatic symptom disorder Class II obesity Sleep disturbance Anxiety Thyroid disease Back pain Family History Family history of problems with anesthesia: No Surgical History Surgical History Hx of cervical spine surgery H/O colonoscopy Hx of section History of Problems with Anesthesia: No Social History Social History Are you a primary transition of care specialist to a significant other at home: No 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 If so, by whom?: No Advance Directives: No Advance Directives Information Provided: Yes Advance Directives on File: No Recently lost weight without trying: No Eating poorly because of decreased appetite: No Nutrition Risks: No Nutritional Risk Patient : No : No Poor oral hygiene: No Meds Allergies Allergy/AdvReac Type Severity Reaction Status Date / Time No Known Allergies Allergy Verified 02/29/24 08:29 Home Medications ?Medication ?Instructions ?Recorded ?Confirmed ?Last Taken ?Type calcitriol 0.25 mcg capsule 0.5 mcg PO DAILY 10/09/23 02/20/24 Unknown History diclofenac sodium 1 % topical gel 2 g topical BID PRN Pain 10/09/23 02/20/24 Unknown History docusate sodium 100 mg capsule 100 mg PO BID 10/09/23 02/20/24 Unknown History ferrous gluconate 324 mg (38 mg 324 mg PO QAM 10/09/23 02/20/24 Unknown History iron) tablet polyethylene glycol 3350 17 gram 17 g PO DAILY 10/09/23 02/20/24 Unknown History oral powder packet acetaminophen 500 mg tablet 1,000 mg PO TID PRN Pain 10/10/23 02/20/24 Unknown History ascorbic acid (vitamin C) 500 mg 500 mg PO DAILY 10/10/23 02/20/24 Unknown History tablet (Vitamin C) bupropion HCl 150 mg 24 hr tablet, 300 mg PO QAM 10/10/23 02/20/24 Unknown History extended release hydroxychloroquine 200 mg tablet 200 mg PO DAILY 10/10/23 02/20/24 Unknown History levothyroxine 137 mcg tablet 137 mcg PO DAILY 10/10/23 02/20/24 10/24/23 History naloxone 4 mg/actuation nasal spray 4 mg intranasal DAILY PRN Opioid 10/10/23 02/20/24 Unknown History Overdose psyllium 1 packet PO DAILY 10/10/23 02/20/24 Unknown History tramadol 50 mg tablet 50 mg PO QID PRN pain 10/10/23 02/20/24 Unknown History trazodone 50 mg tablet 50 mg PO BEDTIME PRN insomnia 02/20/24 02/20/24 Unknown History Exam Height,Weight and Vital Signs: Height 5 ft 2 in Weight 85.275 kg Last Vital Signs Pulse 89 02/20/24 13:31 Resp 16 02/20/24 13:31 BP 126/73 02/20/24 13:31 Pulse Ox 97 02/20/24 13:31 O2 Del Method Room Air 02/20/24 13:31 Pertinent Lab Results Pertinent Lab Results: Laboratory Tests 10/10/23 14:31 Sodium 140 Potassium 4.1 Chloride 106 Carbon Dioxide 27 BUN 11 Creatinine 0.77 Narrative Narrative: EKG 10/2023 Vent. Rate : 065 BPM Atrial Rate : 065 BPM P-R Int : 158 ms QRS Dur : 070 ms QT Int : 384 ms P-R-T Axes : 046 011 007 degrees QTc Int : 399 ms Normal sinus rhythm with sinus arrhythmia Low voltage QRS Borderline ECG No previous ECGs available Assessment and Plan Assessment Anesthesia Assessment: Chart Reviewed Final Anesthetic Review Family History of Problems with Anesthesia: No History of Problems with Anesthesia: No Documented by User: Gallo Gillespie MD 02/29/24 09:19 [facility] Past Medical History Medical History History of headache Numbness Murmur Osteoarthritis Bipolar 1 disorder Cervicalgia Spinal stenosis Depression Borderline personality disorder Constipation Low vitamin D level Anemia Persistent moderate somatic symptom disorder Class II obesity Sleep disturbance Anxiety Thyroid disease Back pain Surgical History Surgical History Hx of cervical spine surgery H/O colonoscopy Hx of section Social History Social History Are you a primary transition of care specialist to a significant other at home: No 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 If so, by whom?: No Advance Directives: No Advance Directives Information Provided: Yes Advance Directives on File: No Recently lost weight without trying: No Eating poorly because of decreased appetite: No Nutrition Risks: No Nutritional Risk Patient : No : No Poor oral hygiene: No Meds Allergies Allergy/AdvReac Type Severity Reaction Status Date / Time No Known Allergies Allergy Verified 02/29/24 08:29 Home Medications ?Medication ?Instructions ?Recorded ?Confirmed ?Last Taken ?Type calcitriol 0.25 mcg capsule 0.5 mcg PO DAILY 10/09/23 02/20/24 Unknown History diclofenac sodium 1 % topical gel 2 g topical BID PRN Pain 10/09/23 02/20/24 Unknown History docusate sodium 100 mg capsule 100 mg PO BID 10/09/23 02/20/24 Unknown History ferrous gluconate 324 mg (38 mg 324 mg PO QAM 10/09/23 02/20/24 Unknown History iron) tablet polyethylene glycol 3350 17 gram 17 g PO DAILY 10/09/23 02/20/24 Unknown History oral powder packet acetaminophen 500 mg tablet 1,000 mg PO TID PRN Pain 10/10/23 02/20/24 Unknown History ascorbic acid (vitamin C) 500 mg 500 mg PO DAILY 10/10/23 02/20/24 Unknown History tablet (Vitamin C) bupropion HCl 150 mg 24 hr tablet, 300 mg PO QAM 10/10/23 02/20/24 Unknown History extended release hydroxychloroquine 200 mg tablet 200 mg PO DAILY 10/10/23 02/20/24 Unknown History levothyroxine 137 mcg tablet 137 mcg PO DAILY 10/10/23 02/20/24 10/24/23 History naloxone 4 mg/actuation nasal spray 4 mg intranasal DAILY PRN Opioid 10/10/23 02/20/24 Unknown History Overdose psyllium 1 packet PO DAILY 10/10/23 02/20/24 Unknown History tramadol 50 mg tablet 50 mg PO QID PRN pain 10/10/23 02/20/24 Unknown History trazodone 50 mg tablet 50 mg PO BEDTIME PRN insomnia 02/20/24 02/20/24 Unknown History Exam Airway Mallampati Class: I TM Dist: >3cm Neck ROM: Full Loose/Missing/Broken Teeth: No Heart: rrr Lungs: cta b/l Assessment and Plan Assessment Anesthesia Assessment: Anesthesia Plan Discussed Final Anesthetic Review NPO: Yes ASA Class: II Final Preanesthetic Review: No Changes in Pt Med Stat, Meds/Allgs Chart Reviewed, Consent Obtained/Reviewed and Anes Risks/Benef Reviewed Patient Risk: Intermediate Procedure Risk: Intermediate Anesthetic Plan Anesthetic Plan: GA Disposition: Standard PACU
[2024-02-29] VITALS (12 sets, daily range): BP systolic 104–128; BP diastolic 65–78; PULSE 69–92; RESP 10–18; TEMP 36.3–37; O2SAT 96–100; BMI 33.8
--- NOTE | ~2024-02-29 | FL_ITS ---
EXAMINATION: XR FLUOROSCOPY WITH IMAGES CLINICAL INFORMATION: Anterior cervical disc fusion. COMPARISON: None available. TECHNIQUE: Fluoroscopy Supervised By: Dr. Berrios. Fluoroscopy Time: 4.5 min. Cumulative Dose: 1.761 mGy. DAP: 4.5 Gy-cm2. Images: 2. FINDINGS: Fluoroscopic guidance provided for procedure performed by Dr. Berrios. Images demonstrate surgical hardware with disc hardware at C4-C5-C6 levels. FL/FL guidance in OR IMPRESSION: Fluoroscopic guidance provided for procedure performed by. Dr. Berrios. Please refer to operative report for detailed evaluation.
--- NOTE | 2024-02-29 07:08 | MHC.SHP ---
Pre-Procedural Eval Section A - 24 Hr Update-Section A only Date of Service: 02/29/24 The patient is an INPATIENT: No Changes since office visit: No Cold of Flu in the past 2 weeks, No New Medical Problems, No Changes in Medication and No Patient answered all questions The patient has been examined within 24 hours of the surgical procedure. The History & Physical has been completed within 30 days and I have reviewed it.: No Section B - Complete if H&P > 30 days Chief Complaint: Radiculopathy, cervical region Allergies: Allergies Allergy/AdvReac Type Severity Reaction Status Date / Time No Known Allergies Allergy Verified 10/24/23 06:11 Review of Systems Sugical H&P ROS: Negative: Constitution, Cardiovascular, Respiratory, Neurological, Psychiatric, Hem-Onc, Allergic/Immunologic, Gastrointestinal, Genitourinary, Musculoskeletal, Integumentary, Endocrine and Eyes/Ears/Nose/Throat Exam Surgical H&P Exam: Not Evaluated: HEENT, Not Evaluated: Heart, Not Evaluated: Lungs, Not Evaluated: Extremities, Not Evaluated: Abdomen, Not Evaluated: Skin and Not Evaluated: Neurological Plan Diagnosis/Plan: Unchanged C5-6 Anterior cervical diskectomy and fusion Time Spent With Patient Time: Total time managing care of this patient today __6__ minutes.
[2024-02-29 08:44] LABS: UPreg QC Valid YES; Urine Pregnancy NEGATIVE (NEGATIVE)
[2024-02-29] MEDS: Lactated Ringers 1,000 ML 100 ML IVCONT (09:34)
[2024-02-29] MEDS: Gabapentin 300 MG CAPSULE PO (11:06)
[2024-02-29] MEDS: methocarbamoL 750 MG TABLET PO (11:06)
--- NOTE | 2024-02-29 12:37 | P.DS_ITS ---
DS: Providers Provider Date of Service: 02/29/24 Primary care physician: GERA Schafer DS: Summary Time Attestation Discharge Coordination Time (in mins): 15 Quality: Safe Use of Opioids Does Pt have an Active Cancer Diagnosis on the Problem List?: No Quality: Stroke Does the patient have a stroke diagnosis?: No Physical Exam Vital Signs: Vital Signs: Last Vital Signs Temp 98.6 F 02/29/24 09:27 Pulse 81 02/29/24 09:27 Resp 18 02/29/24 09:27 BP 104/65 02/29/24 09:27 Pulse Ox 96 02/29/24 09:27 O2 Del Method Room Air 02/29/24 09:27 BMI result Body Mass Index 33.8 DS: Data Data Completed and Pending Labs on day of discharge: Laboratory Results - last 24 hr 02/29/24 08:30 Urine Test NEGATIVE Discharge Plan Discharge Patient Disposition: Home, Self-Care Referrals: Salnias Ang PA [Primary Care Provider] - 1 Week Discharge Medications: New oxycodone 5 mg tablet 5 mg PO Q6H PRN (Reason: severe pain (scale score 7-10)) Qty: 30 0RF Rx Instructions: Partial Fill upon patient request. Continued polyethylene glycol 3350 17 gram Powder In Packet 17 g PO DAILY docusate sodium 100 mg capsule 100 mg PO BID calcitriol 0.25 mcg capsule 0.5 mcg PO DAILY ferrous gluconate 324 mg (38 mg iron) tablet 324 mg PO QAM diclofenac sodium 1 % gel 2 g topical BID PRN (Reason: Pain) levothyroxine 137 mcg tablet 137 mcg PO DAILY ascorbic acid (vitamin C) [Vitamin C] 500 mg Tablet 500 mg PO DAILY hydroxychloroquine 200 mg tablet 200 mg PO DAILY acetaminophen 500 mg tablet 1,000 mg PO TID PRN (Reason: Pain) naloxone 4 mg/actuation spray,non-aerosol 4 mg intranasal DAILY PRN (Reason: Opioid Overdose) bupropion HCl 150 mg Tablet Extended Release 24 Hr 300 mg PO QAM psyllium Packet 1 packet PO DAILY Rx Instructions: mix into at least 8 oz of water or juice before administering trazodone 50 mg tablet 50 mg PO BEDTIME PRN (Reason: insomnia) Held tramadol 50 mg tablet 50 mg PO QID PRN (Reason: pain) Hold Instructions: Resume on 03/30/24. Until oxycodone Rx is complete Discharge Orders: Discharge Order (Routine); Ordered 02/29/24 Ordered By: Rell Kendall Diet: Advance to usual diet Activity on Discharge: As tolerated Activity Restrictions/Additional Instructions: After your spinal surgery we ask you to observe the following restrictions/guidelines: Activity: It is normal to feel some discomfort as you increase your activity, but that will improve with time. We ask you avoid heavy lifting or acitivities that cause pain. As a general rule, 8lbs is a safe limit for lifting right after surgery. Walk as much as you feel comfortable but not to exhaustion. You will feel extra tired the first few days after surgery. Stay well hydrated. It is OK to walk up and down stairs You may return to driving when you are off narcotics (such as vicodin, oxycodone, dilaudid, etc), and you are back to normal functional capacity. If you have any concerns please check with office before driving. Return to work is specific to each patient and each surgery, so please speak with your doctor/PA at first follow up. Please bring paperwork such as FMLA at that time if you need it filled out. Medications: Please hold your Tramadol until the Oxycodone Rx is complete and we are no longer refilling it. We will give you a short supply of narcotics after surgery (usually one weeks worth). If you need more please call the office but do not use more than prescribed. You will need to give our office 48 hours notice if you need narcotics refilled and we do not fill narcotics on weekends or evenings. If you are on a narcotic, it is a good idea to take a stool softener such as colace or senna to avoid constipation If you take blood thinner such as aspirin, Plavix, Coumadin, Effient, Eliquis etc for conditions such as Afib, DVT, Pulmonary embolus, coronary disease, stents etc please speak with your surgeon about specific details as to when you can resume these medications. You can resume NSAIDs on post op day 1 (eg: Motrin, Naproxen, etc). Follow up: Please call the office, , after surgery to arrange a 3 week follow up for wound check. Wound Care: You may remove your dressing on the first day after surgery. ?You may ?leave open to air. Please do not remove the steri strips underneath. they will fall off on their own in one week. IT IS NORMAL FOR THE WOUND TO OOZE OR BE BLOODY FOR A FEW DAYS AFTER SURGERY. ?IF THIS HAPPENS JUST PLACE NEW DRESSING OVER IT TO AVOID STAINING CLOTHES. You may shower on post op day # 1 We ask that you do not let the water soak the wound. If it does get wet, just towel dry lightly. Please do not scrub your incision or place any type of chemical/ointment on the wound. No tub baths, pools or jacuzzis for one month. If you have any leaking or redness from your wound, or fevers, please call the office. Print Language: [place]
[2024-02-29] MEDS: HYDROmorphone HCl 0.5 MG/0.5 ML SYRINGE IVPUSH ×2 (13:04→13:20)
--- NOTE | 2024-02-29 13:32 | W.PM.OPN ---
Operative Note Operative Note Date of Service: 02/29/24 Narrative: Preoperative Diagnosis: Bilateral cervical radiculopathy Procedure: C5-C6 Anterior discectomy, arthrodesis and implantation cage ; C5-6 anterior instrumentation ; local autograft; microscope Informed Consent was obtained for this operation. I have explained the nature, purpose and benefits of the operation. I have discussed the risks and benefit of the operation including possible complications or adverse events with patient/family. Alternative(s) were discussed with the patient with their relative benefits and risks as well as the consequences of not accepting the operation were included in obtaining consent. Surgeon: ELVIRA ORELLANA MD, PHD Procedure Assisted By: manuel Booth Description of Procedure: This patient had previous C4-5 anterior diskectomy and fusion for which he recovered well. She returned with bilateral cervical radiculopathy which was thought to be coming from adjacent degenerative disc disease C5-C6. She was offered an anterior diskectomy and fusion of this level. The procedure complications were explained. The patient was consented. The patient was brought to the operating room and endotracheally intubated. The patient was put in supine position with slight extension of the neck. Prep and drape was done followed by timeout. A mid cervical incision was made followed by opening of the platysma. The prevertebral fascia was reached following the natural planes while the physician acute care nursing assistant provided manual retraction. The prevertebral fascia was opened to expose the disc space. A spinal needle was placed in the disk space to confirm the correct level with xray. The longus colli muscles were released bilaterally and a self retaining retractor was inserted. Two [place] pins were placed in the C5-C6 vertebral bodies and distraction was give over the interspace. The discectomy was completed toward the posterior annulus of the disc. The microscope was brought in. The remainder of the discectomy was completed. The posterior ligament was opened and resected to expose the underlying dura. Osteophytes were resected from the body of C5 and C6 and saved for autograft. Bilateral foraminotomies were done. The endplates were prepared after which a 6 mm cage filled with autograft was inserted into the disc space. A separate attached plate was locked down with 2 x 14 mm screws as anterior instrumentation. Final x-rays in AP and lateral projection showed a satisfactory position of the implant. The physician acute care nursing assistant took over. The [place] pin was removed. Hemostasis was done. He closed the incision in 2 layers with a 3-0 Vicryl. Steri-Strips used to approximate incision. An OpSite with Tegaderm was used to cover the incision. All sponge and needle counts were correct. Patient was extubated and transported in stable is to recovery room. Anesthesia: General Estimated Blood Loss (ml): 10 mL Duration of Surgery: 40 minutes Postoperative Plan: Discharge home Complications: None
[2024-02-29] MEDS: Ketorolac Tromethamine 30 MG/ML VIAL IVPUSH (14:15)
[2024-02-29] MEDS: ondansetron HCL 4 MG/2 ML VIAL IVPUSH (14:37)
== END 2024-02-29 15:28 | disposition home or self-care (01) ==
PROVIDERS: Nurse Practitioner; PCP Physician Assistant; Visit Provider Neurological Surgery
PROC: (CPT 22551; principal; 2024-02-29 10:20)
DX: M54.12 Radiculopathy, cervical region (principal); Z98.1 Arthrodesis status; M54.2 Cervicalgia; E55.9 Vitamin D deficiency, unspecified; D64.9 Anemia, unspecified; F45.0 Somatization disorder; F32.A Depression, unspecified; F41.9 Anxiety disorder, unspecified; Z79.899 Other long term (current) drug therapy; Z79.890 Hormone replacement therapy; Z87.891 Personal history of nicotine dependence
CPT/HCPCS: 22551; 22853; 20936; 22845; 81025; C1713; C1889; J0131; J0690; J1100; J1170; J1885; J2250; J2371; J2405; J2704; J3010

== ENCOUNTER → 2024-02-29 08:21 | Outpatient (BNV) | payer OTHER, SELFPAY | PROVIDERS: PCP Physician Assistant; Visit Provider Physician Assistant | DX: M54.12 Radiculopathy, cervical region (principal) | CPT/HCPCS: 20936; 22551; 22845; 22853; 99499 ==

== ENCOUNTER 2024-03-20 13:30 | Outpatient (AMB) | payer OTHER, SELFPAY ==
--- NOTE | 2024-03-20 13:44 | A.SPINEOV_ITS ---
Intake Visit Reasons: 1st post op Intake Note: is here today for her 1st post-op appointment. Percussion Instructor Required: No Allergies No Known Allergies Allergy (Verified 03/20/24 13:47) Assessment & Plan Assessment & Plan (1) S/P cervical spinal fusion: Code(s): Z98.1 - Arthrodesis status Category: Medical Plan Procedure: C5-6 ACDF Pratibha comes in today for her 1st postoperative visit. To recap she had a previous C4-5 ACDF from which she initially healed very well. She reported resolution of her cervical radiculopathy, and numbness. Unfortunately, a few weeks after her 1st postoperative appointment she had new onset severe neck pain with bilateral shooting pains into her shoulders. She underwent a C5-6 ACDF shortly thereafter. Since her most recent surgery, she states that she is continued to have bilateral radicular symptoms and posterior neck pain. Hopefully, this suggests a result of postoperative inflammation. There are no other areas in her cervical spine which appear to be pain generators. I answered all of her questions to the best of my ability. No new neurological deficits. Patient is able to ambulate well, rises from a seated position without difficulty. Incision site is closed, well healing, with no signs of drainage. We will follow-up with the patient in 6 weeks for their 2nd postoperative visit. At that time we will get x-rays to review with the patient. Additionally, the patient requested a subsequent follow-up appointment to discuss her low back issues. Rell Berrios MD,PhD [facility] Coding Level of Care Code Global (39258) Diagnoses S/P cervical spinal fusion Z98.1
== END 2024-03-20 14:16 | disposition home or self-care (01) ==
PROVIDERS: PCP Physician Assistant; Visit Provider Physician Assistant
DX: Z98.1 Arthrodesis status (principal)
CPT/HCPCS: 99024

== ENCOUNTER → 2024-03-20 13:30 | Outpatient (BNVA) | payer OTHER, SELFPAY | PROVIDERS: PCP Physician Assistant; Visit Provider Physician Assistant | DX: Z98.1 Arthrodesis status (principal) | CPT/HCPCS: 99212 ==

== ENCOUNTER 2024-04-30 09:00 | Outpatient (REF) | payer OTHER, SELFPAY ==
--- NOTE | ~2024-04-30 | XR_ITS ---
EXAMINATION: XR CERVICAL SPINE CLINICAL INFORMATION: Arthrodesis status. COMPARISON: 02/29/2024 fluoroscopy, 01/25/2024 MR cervical spine, 12/27/2023 x-ray cervical spine. TECHNIQUE: 5 views of the cervical spine inclusive of flexion and extension views. FINDINGS: Status post anterior fusion and discectomies at C4-C5 and C5-C6. Hardware appears intact. Limited visualization of C6 and C7 due to overlying bony and soft tissue structures. Straightening of the normal cervical lordosis with slight reversal. Overlying presumed jewelry obscures C1-C2. Alignment maintained on flexion and extension views. XR/XR cervical spine 4V IMPRESSION: Status post anterior fusion and discectomies at C4-C5 and C5-C6. Hardware appears intact
== END 2024-04-30 09:01 | disposition home or self-care (01) ==
LOC: HO.HOSX 09:00
PROVIDERS: Visit Provider Physician Assistant
DX: Z98.1 Arthrodesis status (principal)
CPT/HCPCS: 72050; 99212

== ENCOUNTER 2024-04-30 13:33 | Outpatient (AMB) | payer OTHER, SELFPAY ==
--- NOTE | 2024-04-30 14:00 | HO.SPINEOV ---
Intake Visit Reasons: 2nd post op with Xrays Intake Note: is here today for 2nd post-op with xrays. Fire Support Specialist Required: No Allergies No Known Allergies Allergy (Verified 03/20/24 13:47) Assessment & Plan Assessment & Plan (1) S/P cervical spinal fusion: Code(s): Z98.1 - Arthrodesis status Category: Surgical Plan Pratibha is a pleasant 43-year-old female who comes in today for a subsequent follow-up visit after her C5-6 ACDF was completed. She reports she finally has resolution of her bilateral cervical radiculopathy. She has no numbness in either of her hands, no tingling sensations in no shooting pains she still does report some posterior neck pain, however she has discussed her surgery with other individual she knows who has had similar surgeries in feels reassured that they encouraged her the symptoms to will resolve. She now reports that she is very satisfied with the surgery in his glad that she went through with it. We reviewed her x-ray imaging during this visit today which shows stable placement of surgical instrumentation with no changes from fluoroscopy. The patient denies any neurological deficits, however she continues to ambulate with a cane for what she refers to as severe low back issues. She states she has had shooting pains into her bilateral lower extremities for the past few months and was more concerned with addressing her cervical neck issues first. She would like to make a subsequent follow-up visit with us to address a new complaint; her low back. I had our schedulers book her for a established patient new complaint visit with me, during which we will obtain a set of lumbar x-rays and complete a full examination. Rell Berrios MD,PhD [facility] Orders: Orders XR cervical spine 4V Today Z98.1 - Arthrodesis status Coding Level of Care Code Global (02777) Diagnoses S/P cervical spinal fusion Z98.1
== END 2024-04-30 14:21 | disposition home or self-care (01) ==
PROVIDERS: PCP Physician Assistant; Visit Provider Physician Assistant
DX: Z98.1 Arthrodesis status (principal)
CPT/HCPCS: 99024

== ENCOUNTER 2024-05-07 13:31 | Outpatient (AMB) | payer OTHER, SELFPAY ==
--- NOTE | 2024-05-07 14:17 | HO.SPINEOV ---
Intake Visit Reasons: New c/o low back pain Intake Note: is here today c/o low back pain. Equipment Man Required: No Allergies No Known Allergies Allergy (Verified 05/07/24 14:17) Assessment & Plan Assessment & Plan (1) Lumbar radiculopathy: Code(s): M54.16 - Radiculopathy, lumbar region Category: Medical Plan PMH: And is a pleasant 43-year-old female who is known to our service and had C4-6 ADF completed within the last year. Today, she comes in to address her low back pain with radicular symptoms. She identifies an inciting incident as an accident on a job site in 2007 when she was living in [place]. She states that she was attempting to lift a box of files off of a shelf, and felt a sharp pain in her low back which brought her to her knees. She was transported to the hospital and treated with narcotic pain medications. Since this incident she is attempted several forms of conservative treatments including physical therapy, acupuncture, hydro massage, TENS units, Tylenol, ibuprofen, Voltaren gel, and long-term narcotic pain medications. All of these options have not provided her with the desired relief. When describing her shooting radicular pain she runs her hand over the postero-lateral aspect of her thighs, down her posterior gastrocnemius into the top of her right foot. She states that the left foot is not affected. Physical exam: On exam, Zoë has what I would call 3/5 strength with right-sided dorsiflexion and 4/5 strength diffusely elsewhere in her right lower extremity. The rest of her strength is 5/5 intact. She ambulates with the use of a cane, bracing herself as she takes each step. She sits favoring the left side. She reports no significant sensational deficits at this time. Her reflexes are 2+ intact. (-) clonus, (-) Babinski's, (+) bilateral straight leg raise. Imaging review: MRI of the lumbar spine completed at [place] in April of 2023 shows moderate central canal and bilateral foraminal stenosis at L2-3 as a result of a paracentral posterior disc bulge. At L4-5 there is a posterior disc bulge with disc extrusion causing severe central canal and bilateral foraminal stenosis at this level, compressing the L5 nerve roots bilaterally. Impression: And is a pleasant 43-year-old female who comes in today as an established patient with a new complaint. She would like to have her low back concerns addressed. The pain that she describes is in a classic L5-S1 distribution. I believe due to the dorsal surface of her right foot being affected and her lateral thighs being affected it can be argued this predominantly an L5 radiculopathy, which we can correlate strongly with her MRI imaging. I would like to review this case with Dr. Berrios, and get back to the patient next week. She may need a microdiskectomy to address this issue. We will need to discuss this further via phone call next week and the patient will need to be consented if surgery is offered. The total time spent with this visit with this patient was 40 minutes reviewing history, physical exam, MRI imaging review, and implementation of treatment plan or further diagnostic testing. Rell Berrios MD,PhD [facility] Coding Level of Care Code Est Pt Level 4 (44556) Diagnoses Lumbar radiculopathy M54.16
== END 2024-05-07 15:14 | disposition home or self-care (01) ==
PROVIDERS: PCP Physician Assistant; Visit Provider Physician Assistant
DX: M54.16 Radiculopathy, lumbar region (principal)
CPT/HCPCS: 99024

== ENCOUNTER → 2024-05-07 13:31 | Outpatient (BNVA) | payer OTHER, SELFPAY | PROVIDERS: PCP Physician Assistant; Visit Provider Physician Assistant | DX: M54.16 Radiculopathy, lumbar region (principal) | CPT/HCPCS: 99212 ==

== ENCOUNTER 2024-08-26 13:39 | Outpatient (AMB) | payer OTHER, SELFPAY ==
--- NOTE | 2024-08-26 14:50 | HO.SPINEOV ---
Intake Visit Reasons: Discuss sx Intake Note: is here today to Discuss Surgery Sas Programmer Analyst Required: No Allergies No Known Allergies Allergy (Verified 05/07/24 14:17) Assessment & Plan Assessment & Plan (1) Lumbar radiculopathy: Code(s): M54.16 - Radiculopathy, lumbar region Category: Medical Plan: Today I saw for follow up Ms. Pratibha Rodriguez to discuss the possibility of surgery. See previous office notes for details of this issue. She has significant compression at L4-5 on her MRI imaging, however her symptoms have continued to worsen in the last 1.5 years, and I am concerned that she may have progression of degeneration/compression at this level that could alter the course of a surgical intervention. Zoë continues to ambulate with the assistance of a cane with a severely antalgic gait. She needs assistance in order to rise from a seated position. I would like for her to have a repeat lumbar MRI which I will review with the attending neurosurgeon Dr. Berrios prior to attempting to book her for surgery. I believe this is the most responsible thing to do for the patient. She is in agreement with this plan. I will discuss her imaging with her when it is complete. Rell Berrios MD,PhD [facility] Orders: Orders MR lumbar spine wo con Today M54.16 - Radiculopathy, lumbar region Coding Level of Care Code Est Pt Level 3 (96964) Diagnoses Lumbar radiculopathy M54.16
== END 2024-08-26 15:20 | disposition home or self-care (01) ==
PROVIDERS: PCP Physician Assistant; Visit Provider Physician Assistant
DX: M54.16 Radiculopathy, lumbar region (principal)
CPT/HCPCS: 99213

== ENCOUNTER → 2024-08-26 13:39 | Outpatient (BNVA) | payer OTHER, SELFPAY | PROVIDERS: PCP Physician Assistant; Visit Provider Physician Assistant | DX: M54.16 Radiculopathy, lumbar region (principal) | CPT/HCPCS: 99212 ==

== ENCOUNTER 2024-11-28 11:26 | Outpatient (AMB) | payer OTHER, SELFPAY ==
--- NOTE | 2024-11-28 11:34 | HO.SPINEOV ---
Intake Visit Reasons: MRI f/u Intake Note: is here today to F/u on the results to her MRI. Correctional Medicine Physician Required: No Allergies No Known Allergies Allergy (Verified 05/07/24 14:17) Assessment & Plan Assessment & Plan (1) Lumbar radiculopathy: Code(s): M54.16 - Radiculopathy, lumbar region Category: Medical Plan Pratibha comes in today for follow-up after having a repeat lumbar MRI completed at [facility]. She continues to have low back pain with shooting pains into her bilateral lower extremities, worse on the right. She associates these symptoms with numbness, burning, and tingling, also worse on the right. She states that the pain starts in her low back shoots into her bilateral buttocks over her lateral thighs and into her anterior thighs. On the right side this pain continues down her anterior tibialis into the lateral calf. This pain has caused her to need to ambulate with the assistance of a cane. She feels the pain continues to worsen as the days progress. MRI imaging shows a worsening disc herniation at L4-5 causing severe central canal and bilateral foraminal stenosis at this level. There is also disc bulging at L2-3, and L3-4, but is not nearly as severe. Examination in clinic today shows 4/5 strength on the right side with dorsiflexion, plantar flexion, knee extension knee flexion and iliopsoas testing. Left-sided lower extremity strength is full 5/5. The patient has hypoesthesia over the distal anterior thigh and anterior tibialis on the right. I believe that given the progression of the disc herniation seen at L4-5 compared to previous imaging I believe the patient would be a good candidate for a right sided microdiskectomy at L4-5. She understands that this will not expressly treat her back pain, and may not resolve the numbness that she has developed. It is primarily to treat her radicular leg pain. Pratibha was given risk and benefits of surgery including but not limited to infection, hematoma, nerve injury, durotomy, weakness, bowel/bladder injury, persistent pain, as well as the option to continue with conservative treatment and patient wishes to proceed with surgery. They are aware they should stop NSAIDs 7 days prior to surgery. All questions were answered to the best of our ability. If there is anything about this patients medical history that we have overlooked or concerns you have about us proceeding with surgery we would appreciate any input you can offer. I will review the patient's case with Dr. Berrios and update the patient thereafter/have our hospice case manager book her thereafter. Rell Berrios MD,PhD [facility] Coding Level of Care Code Est Pt Level 3 (86458) Diagnoses Lumbar radiculopathy M54.16
== END 2024-11-28 13:23 | disposition home or self-care (01) ==
PROVIDERS: PCP Physician Assistant; Visit Provider Physician Assistant
DX: M54.16 Radiculopathy, lumbar region (principal)
CPT/HCPCS: 99213

== ENCOUNTER → 2024-11-28 11:26 | Outpatient (BNVA) | payer OTHER, SELFPAY | PROVIDERS: PCP Physician Assistant; Visit Provider Physician Assistant | DX: M54.16 Radiculopathy, lumbar region (principal) | CPT/HCPCS: 99212 ==

== ENCOUNTER 2025-03-27 08:33 | Day surgery (SDC) | payer OTHER, SELFPAY ==
[2025-03-07 12:29] VITALS: BP 124/68; PULSE 74; RESP 16; O2SAT 99; BMI 31.5
--- OUTSIDE RECORDS SUMMARY | 2025-03-07 12:51 | XMS_ITS | Clinical Summary ---
Author Organization [facility] Address [address] [place] [address] Care Team Providers Care Library Services Assistant Name Role Phone [facility] Primary Care Provider [phone] Source Comments PLEASE NOTE, if this patient is a minor, it may be UNLAWFUL to discuss sensitive information that is contained in these records (such as FAMILY PLANNING, MENTAL HEALTH or SUBSTANCE ABUSE) with the minor patient's parent or other person without the patient's specific authorization.[facility] Allergies No known active allergies Medications docusate sodium (COLACE) 100 mg capsuleIndicati ons:Microcytic anemia TAKE 1 CAPSULE BY MOUTH TWICE A DAY 90 Cap 3 020 Active hydrOXYchloroQU INE (PLAQUENIL) 200 mg tablet Take 200 mg by mouth 1 time each day 023 Active naloxone (NARCAN) 4 mg/actuation nasal spray Place 1 [place] into the nostril(s) as needed for opioid reversal (Overdose) 1 Each 023 Active caneIndications :Neck pain,Class 1 obesity,Chronic midline low back pain without sciatica,Spinal stenosis of lumbar region without neurogenic claudication,Ch ronic bilateral low back pain with right-sided sciatica,Spinal stenosis of lumbar region, unspecified whether neurogenic claudication present,Cervica l paraspinal muscle spasm,Cervicalg ia,DDD (degenerative disc disease), lumbar,Arthriti s Please dispense one cane for patient with profound gait disturbance. 1 Each 023 Active walkerIndicatio ns:Neck pain,Class 1 obesity,Chronic midline low back pain without sciatica,Spinal stenosis of lumbar region without neurogenic claudication,Ch ronic bilateral low back pain with right-sided sciatica,Spinal stenosis of lumbar region, unspecified whether neurogenic claudication present,Cervica l paraspinal muscle spasm,Cervicalg ia,DDD (degenerative disc disease), lumbar,Arthriti s Please dispense one Rollator walker which is folding with seat and wheels. 1 Each 023 Active walkerIndicatio ns:Neck pain,Class 1 obesity,Chronic midline low back pain without sciatica,Spinal stenosis of lumbar region without neurogenic claudication,Ch ronic bilateral low back pain with right-sided sciatica,Spinal stenosis of lumbar region, unspecified whether neurogenic claudication present,Cervica l paraspinal muscle spasm,Cervicalg ia,DDD (degenerative disc disease), lumbar,Arthriti s Please dispense one Rollator walker which is folding with seat and wheels. 1 Each 023 Active ferrous gluconate (FERGON) 324 mg (38 mg iron) tabletIndicatio ns:Iron deficiency anemia, unspecified iron deficiency anemia type TAKE 1 TABLET BY MOUTH ONCE DAILY WITH BREAKFAST 90 Tablet 1 024 Active scopolamine (TRANSDERM-SCOP ) 1 mg over 3 days patchIndication s:Vertigo PLACE 1 PATCH ONTO THE SKIN EVERY THIRD DAY (EVERY 72 HOURS) 24 Patch 024 Active traMADoL (ULTRAM) 50 mg tablet TAKE 1 TABLET BY MOUTH EVERY 4 (FOUR) HOURS NEEDED FOR PAIN FOR PAIN 30 Tablet 024 Active underpadsIndica tions:Routine adult health maintenance,Enc ounter for screening mammogram for malignant neoplasm of breast,Spinal stenosis of lumbar region, unspecified whether neurogenic claudication present,Spinal stenosis of lumbar region without neurogenic claudication,Ur inary incontinence without sensory awareness Use one underpad per night for urinary incontinence. 90 Each 2 024 Active lidocaine (LIDODERM) 5 % patchIndication s:Spinal stenosis of lumbar region, unspecified whether neurogenic claudication present,Spinal stenosis of lumbar region without neurogenic claudication,Ne ck pain,Class 1 obesity,Chronic midline low back pain without sciatica,Chroni c bilateral low back pain with right-sided sciatica,Cervic al paraspinal muscle spasm,Cervicalg ia,DDD (degenerative disc disease), lumbar,Arthriti s Place 1 Patch onto the skin once daily (every 24 hours) 12 hours on, 12 hours off. 30 Patch Active walkerIndicatio ns:Routine adult health maintenance,Enc ounter for screening mammogram for malignant neoplasm of breast,Spinal stenosis of lumbar region, unspecified whether neurogenic claudication present,Spinal stenosis of lumbar region without neurogenic claudication,Ur inary incontinence without sensory awareness,Neck pain,Class 1 obesity,Chronic midline low back pain without sciatica,Chroni c bilateral low back pain with right-sided sciatica,Cervic al paraspinal muscle spasm,Cervicalg ia,DDD (degenerative disc disease), lumbar,Arthriti s Second Rolator needed for upstair. 1 Each 024 Active walker (ULTRA-LIGHT ROLLATOR)Indica tions:Spinal stenosis of lumbar region, unspecified whether neurogenic claudication present,Spinal stenosis of lumbar region without neurogenic claudication,Ne ck pain,Class 1 obesity,Chronic midline low back pain without sciatica,Chroni c bilateral low back pain with right-sided sciatica,Cervic al paraspinal muscle spasm,Cervicalg ia,DDD (degenerative disc disease), lumbar,Arthriti s Please dispense one Rollator walker which is folding with seat and wheels. 1 Each Active levothyroxine 125 mcg tabletIndicatio ns:Hypothyroidi sm, unspecified type TAKE 1 TABLET BY MOUTH EVERY MORNING BEFORE BREAKFAST NEW DOSE - PT TO STOP LEVOTHYROXINE 137 MCG 90 Tablet 3 024 Active lidocaine (LIDODERM) 5 % patchIndication s:Spinal stenosis of lumbar region, unspecified whether neurogenic claudication present,Neck pain,Chronic bilateral low back pain with right-sided sciatica,Cervic al paraspinal muscle spasm,Cervicalg ia,DDD (degenerative disc disease), lumbar,Arthriti s Place 1 Patch onto the skin daily. Apply 1 patch to the affected area for a maximum of 12 hours, followed by removal for 12 hours. 30 Patch 1 024 Active progesterone micronized (PROMETRIUM) 200 mg capsule Take 1 Capsule by mouth once daily From day 15 of the cycle for two weeks or until menses occur. 42 Capsule 3 024 Active acetaminophen (TYLENOL) 500 mg tabletIndicatio ns:Cervical paraspinal muscle spasm Take 2 Tablets by mouth every 6 (six) hours as needed for pain 90 Tablet 1 024 Active ibuprofen 800 mg tabletIndicatio ns:Chronic bilateral low back pain with right-sided sciatica Take 1 Tablet by mouth 2 (two) times daily with a meal 180 Tablet 1 024 Active diclofenac sodium (VOLTAREN) 1 % gelIndications: Chronic bilateral low back pain with right-sided sciatica Apply topically 2 (two) times daily to affected area 100 g 5 024 Active clonazePAM (KLONOPIN) 0.5 mg tabletIndicatio ns:Post traumatic stress disorder Take 1 Tablet by mouth once daily as needed for anxiety for up to 180 days 30 Tablet 5 024 2024 Active tranexamic acid (LYSTEDA) 650 mg tablet TAKE 2 TABLETS BY MOUTH 3 (THREE) TIMES DAILY DURING MENSES ONLY 60 Tablet 4 024 Active VITAMIN C 500 mg tablet TAKE 1 TABLET BY MOUTH EVERY DAY 90 Tablet 1 025 Active polyethylene glycol, PEG, 3350 (MIRALAX) 17 gram packetIndicatio ns:Constipation , unspecified constipation type TAKE 17 GRAMS BY MOUTH ONCE DAILY 90 Packet 1 025 Active buPROPion XL (WELLBUTRIN XL) 300 mg 24 hr tabletIndicatio ns:Persistent depressive disorder Take 1 Tablet by mouth every morning for 90 days 90 Tablet 025 2024 Active traZODone (DESYREL) 100 mg tabletIndicatio ns:Persistent depressive disorder Take 1 Tablet by mouth nightly at bedtime as needed for sleep for up to 90 days 90 Tablet 025 2024 Active calcitrioL (ROCALTROL) 0.5 mcg capsule TAKE 1 CAPSULE BY MOUTH EVERY DAY 90 Capsule 025 Active traMADoL (ULTRAM) 50 mg tabletIndicatio ns:Encounter for screening mammogram for malignant neoplasm of breast,Spinal stenosis of lumbar region, unspecified whether neurogenic claudication present,Spinal stenosis of lumbar region without neurogenic claudication,Ur inary incontinence without sensory awareness,Neck pain,Chronic midline low back pain without sciatica,Chroni c bilateral low back pain with right-sided sciatica,Cervic al paraspinal muscle spasm,Cervicalg ia,DDD (degenerative disc disease), lumbar,Arthriti s TAKE 1 TABLET BY MOUTH EVERY 4 (FOUR) HOURS NEEDED FOR PAIN FOR PAIN 30 Tablet 2 025 Active GAVILAX 17 gram/dose powderIndicatio ns:Constipation , unspecified constipation type TAKE 17 G BY MOUTH ONCE DAILY INDICATIONS: CONSTIPATION, EMPTYING OF THE BOWEL 510 g 025 Active GAVILAX 17 gram/dose powderIndicatio ns:Constipation , unspecified constipation type TAKE 17 G BY MOUTH ONCE DAILY INDICATIONS: CONSTIPATION, EMPTYING OF THE BOWEL 510 g 025 2024 Discontinued Active Problems Problem Noted Date Diagnosed Date Post traumatic stress disorder 07/21/2023 Chronic migraine with aura 07/04/2023 Anemia 11/22/2022 Lumbar stenosis 11/22/2022 Borderline personality disorder ([facility]) 2021 Overview (02/02/2023): [facility]. Therapist: Claudia Cordon and meds by Aleida Julian Psych. Therapist: Claudia Cordon and meds by Aleida Julian Psych. Therapist: Claudia Cordon and meds by Aleida Julian Psych. 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 Back pain, chronic 06/22/2022 Iron deficiency anemia 06/22/2022 Low vitamin D level 06/22/2022 Pain of right hand 06/22/2022 Constipation 06/22/2022 Routine adult health maintenance 06/22/2022 Hypothyroid 06/08/2018 Anxiety 06/08/2018 Depression 06/08/2018 Sleep disturbance 06/08/2018 Resolved Problems Problem Noted Date Diagnosed Date Resolved Date Chronic bilateral low back p ain with right-sided sciatica 06/08/2018 02/02/2023 Encounters Date Type Department Care Team Description 01/13/2025 2:30 PM EDT / Visits [address] [phone] Kristie Kuo PMHNP Persistent depressive disorder (Primary Dx); Post traumatic stress disorder; Borderline personality disorder (HCC-CMS) 12/30/2024 / TELEPHONE [address] [phone] Kristie Kuo PMHNP Persistent depressive disorder (Primary Dx); Post traumatic stress disorder; Borderline personality disorder (HCC-CMS) from Last 3 Months Immunizations Immunization Administration Dates Next Due Flu, Multi Dose 0.5 ML 09/19/2019,08/16/2018 Flu, Preservative Free 07/25/2023,07/21/2022, Hep B,adult,adjuvanted (HEPLISAV) 04/14/2023,10/2023 INFLUENZA, SEASONAL, INJECTABLE 08/07/2015 Moderna COVID-19 Vaccine, re d cap blue label, 12+ Primary Series 08/12/2021,07/15/2021 PFIZER COVID VACCINE, PURPLE CAP, 12+ 06/22/2022 PNEUMOCOCCAL CONJUGATE PCV 20 (Prevnar) 06/19/20 23 PNEUMOCOCCAL POLYSACCHARIDE PPV23 (Pneumovax 23) 10/23/2018 TDAP 10/23/2018,08/07/2015 ZOSTER VACCINE, RECOMBINANT (SHINGRIX) 3 Social History Tobacco Use Types Packs/Day Years Used Date Smoking Tobacco: Former Smokeless Tobacco: Never Tobacco Cessation:Counseling Given: Not Answered Alcohol Use Standard Drinks/Week Comments No 0 (1 standard drink = 0.6 oz pur e alcohol) Social Connections Answer Date Recorded Connectedness 0 09/11/2023 Financial Resource Strain Answer Date R ecorded Financial Resource Strain 0 2022 Stress Answer Date Recorded Stress 0 09/11/2023 Physical Activity Answer Date Recorded Physical Activity 0 06/29/2019 Food Insecurity Answer Date Recorded Food 0 09/11/2023 Transportation Needs Answer Date Record ed Transportation 0 09/11/2023 Housing Stability Answer Date Recorded Housing 0 09/11/2023 Safety and Environment Answer Date [place] rded Safety 0 09/11/2023 Utilities Answer Date Recorded Utilities 0 09/11/2023 Employment Answer Date Recorded Stress 0 06/22/2022 Comments No Sex and Gender Information Value Date Recorded Sex Assigned at Female 06/08/2018 7:52 AM PDT Legal Sex Female 11:36 AM PDT Gender Identity Female 06/08/2018 7:52 AM PDT Sexual Orientation Straight 06/08/2018 7: 52 AM PDT Last Filed Vital Signs Vital Sign Reading Time Taken Comments Blood Pressure 114/79 09/06/2024 3:41 PM EDT Pulse 86 09/06/2024 3:41 PM EDT Temperature 36.7 ??C (98.1 ??F) 06/12/2024 1:40 PM ED T Respiratory Rate 16 09/06/2024 3:41 PM EDT Oxygen Saturation 98% 09/06/2024 3:41 PM EDT Inhaled Oxygen Concentration - - Weight 78.9 kg (174 lb) 09/06/2024 3:41 PM EDT Height 156 cm (5' 1.42 ) 09/06/2024 3:41 PM EDT Body Mass Index 32.43 09/06/2024 3:41 PM EDT Plan of Treatment Upcoming Encounters Date Type Department Care Team (Late st Contact Info) Description 03/10/2025 2:00 PM EDT / Visits [address] [phone] [place] [address] [place] [address] Health Maintenance Due Date Last Done Comments Anxiety Screening 1980 HPV Screening 1980 Urine Drug Screen 1980 [id number]-50 ( season) 2024 06/22/2022, 08/12/2021, 07/15/2021 Relationship Safety Screening/Counseling 09/11/2024 09/11/2023, 05/11/2023, 11/22/2022, Additional history exists Depression Monitoring 09/12/2024 06/12/2024 , 09/11/2023, 05/11/2023, Additional history exists Alcohol and Drug Screen 11/06/2024 06/12/20 24, 09/11/2023, 05/11/2023, Additional history exists TSH Monitoring 05/16/2025 05/16/2024, 0506/2024, 02/02/2023, Additional history exists Medicare Annual Wellness Visit 06/12/2025 06/12/2024 Breast Cancer Screening (Mammogram) 07/12/2025 01/09/2025, 01/09/2025, 12/14/2023, Additional history exists Hypertension Screening (#1) 09/06/2025 Tobacco Screening 01/13/2026 01/13/2025, 07/21/2022 Pap Smear 02/27/2026 02/27/2023 Lipid Screening 09/11/2026 09/11/2023, 07/07, 06/08/2018 Diabetes Screening 11/07/2026 11/07/2023, 0 07/21/2022, 01/06/2021, Additional history exists Cervical Cancer Screening 02/29/2028 Pap + HPV 02/29/2028 02/28/2023, 02/27/2023 Imm-DTaP/Tdap/Td (3 - Td or Tdap) 10/23/2028 018, 08/07/2015 HIV Screening Completed 10/26/2018 Hepatitis C Screening Completed 01/06/2021 Imm-Hepatitis B Completed 04/14/2023, 03/17/2023 Imm-Influenza Completed 07/19/2024, 07/07, 07/21/2022, Additional history exists Cervical Ablation/Cold-Knife Conization Discontinued Cervical Cryotherapy Discontinued Colposcopy Discontinued Endometrial Biopsy Discontinued Excision/Leep Discontinued HPV Genotyping Discontinued Vaginal Pap Discontinued Vulvoscopy Discontinued Goals Goal Patient Goal Type Associated Problems Recent Progress Patient-Stated? Author Patient? s symptoms of depression/anx iety will be stable General No Rubi Lam, COMPOUNDING ASSISTANT Procedures Procedure Name Priority Date/Time Associated Diagnosis Comments REFERRAL SCANNED DOCUMENT 01/13/2025 3:00 AM EDT HISTORIC MAMMOGRAM 01/09/2025 3: 00 AM EST TSH W/RFLX FREE T4 Routine 05/16/2024 10 :17 AM EDT Hypothyroidism, unspecified type HGBA1C W/MPG Routine 11/07/2023 1:58 PM EST Vertigo Hyperglycemia LIPID PANEL Routine 09/11/2023 3:17 PM EST Hypercholesterolemia THINPREP PAP & HPV MRNA E6/E7 RFLX HPV 16,18/[address]/NG Routine 02/27/2023 8:00 PM EDT Encounter for cervical Pap smear with pelvic exam HEPATITIS A,B,C PANEL Routine 01/06/2021 3:02 PM EST Routine adult health maintenance ANTIBODY HIV-1&HIV-2 SINGLE RESULT Routine 10/26/2018 11:55 AM EST Screening examination for sexually transmitted disease from Last 3 Months or Most Recently Relevant to Health Maintenance Results * REFERRAL SCANNED DOCUMENT (01/13/2025 3:00 AM EDT) 01/13/2025 3:00 AM EDT us [facility] BOSS SCAN REFERRAL Edited Result - Final * HISTORIC MAMMOGRAM (01/09/2025 3:00 AM EST) 01/09/2025 3:00 AM EST us [facility] BOSS IMG MAMMO Final Result * (ABNORMAL) TSH W/RFLX FREE T4 (05/16/2024 10:17 AM EDT) TSH W/REFLEX TO FT4 0.09(L) 0.40 - 4.50 mIU/L [facility] Comment: ?Reference Range ?> or = 20 Years ??0.40-4.50 ? Ranges ?First trimester ?0.26-2.66 ?Second trimester ?? 0.55-2.73 ?Third trimester ?0.43-2.91 Blood Blood / Unknown 05/16/2024 1 0:17 AM EDT 05/16/2024 10:17 AM EDT [facility] - BLOOD DRAW Final Result Performing Organization Address [facility] Co de Phone Number [employer] [address] [address], [employer] [address] [address] * HGBA1C W/MPG (11/07/2023 1:58 PM EST) HEMOGLOBIN A1C 5.3 <5.7 % of total Hgb [facility] Comment: For the purpose of screening for the presence of diabetes: <5.7% ? Consistent with the absence of diabetes 5.7-6.4% ?Consistent with increased risk for diabetes ?(prediabetes) > or =6.5% ??Consistent with diabetes This assay result is consistent with a decreased risk of diabetes. Currently, no consensus exists regarding use of hemoglobin A1c for diagnosis of diabetes in children. According to [place] Diabetes Association (ADA) guidelines, hemoglobin A1c <7.0% represents optimal control in non- diabetic patients. Different metrics may apply to specific patient populations. Standards of Medical Care in Diabetes(ADA). ?? MEAN PLASMA GLUCOSE 111 mg/dL (calc) [facility] Blood Blood / Unknown 11/07/2023 1 :58 PM EST 11/07/2023 1:59 PM EST us [place] [facility]OSS [facility] - BLOOD DRAW Final Result Performing Organization Address [facility]/ZIP Co de Phone Number [employer] [address] [address], [employer] [address] [address] * (ABNORMAL) LIPID PANEL (09/11/2023 3:17 PM EST) CHOLESTEROL, TOTAL 224(H) <200 mg/dL [facility] HDL CHOLESTEROL 62 > OR = 50 mg/dL [facility] TRIGLYCERIDES 218(H) <150 mg/dL [facility] Comment: If a non-fasting specimen was collected, consider repeat triglyceride testing on a fasting specimen if clinically indicated. Antionette et al. J. of Clin. Lipidol. 2015;9:129-169. LDL-CHOLESTEROL 126(H) 99 mg/dL (calc) [facility] Comment: Reference range: <100 Desirable range <100 mg/dL for primary prevention; ?? <70 mg/dL for patients with CHD or diabetic patients with > or = 2 CHD risk factors. LDL-C is now calculated using the Michael calculation, which is a validated novel method providing better accuracy than the Friedewald equation in the estimation of LDL-C. Adam SS et al. ELYSSA. 2013;310(19): 9524-4384 (http://education.Bluebox/faq/CWH732) CHOL/HDLC RATIO 3.6 <5.0 (calc) [facility] NON-HDL CHOLESTEROL 162(H) <130 mg/dL (calc) [facility] Comment: For patients with diabetes plus 1 major ASCVD risk factor, treating to a non-HDL-C goal of <100 mg/dL (LDL-C of <70 mg/dL) is considered a therapeutic option. Blood Blood / Unknown 09/11/2023 3 :17 PM EST 09/11/2023 3:17 PM EST [facility] - BLOOD DRAW Final Result [facility] [address] [place] [id number], [facility] [address] [place] [phone] * THINPREP PAP & HPV MRNA E6/E7 RFLX HPV 16,18/[address]/NG (02/27/2023 8:00 PM EDT) CHLAMYDIA TRACHOMATIS RNA, TMA NOT DETECTED NOT DETECTED [facility] NEISSERIA GONORRHOEAE RNA, TMA NOT DETECTED NOT DETECTED [facility] COMMENT [facility] CLINICAL INFORMATION See Note [facility] Comment:Routine exam LMP See Note [facility] Comment:02/04/23 PREV. PAP See Note [facility] Comment:NONE GIVEN PREV. BX See Note [facility] Comment:NONE GIVEN SOURCE See Note [facility] Comment:Cervix STATEMENT OF ADEQUACY See Note [facility] Comment: Satisfactory for evaluation. Endocervical/transformation zone component present. INTERPRETATION/RESU LT See Note [facility] Comment:Negative for intraep ithelial lesion or malignancy. INFECTION See Note [facility] Comment: Shift in vaginal nenita suggestive of bacterial vaginosis. PANEL WIRER See Note [facility] [employer] [facility] Comment: KR, CT(ASCP) CT screening location: [address] ??[address] COMMENT [facility] HPV MRNA E6/E7 Not Detected Not Detected [facility] Comment: Methodology: [employer] Mach[employer] Teacher-Mediated Amplification This assay detects E6/E7 viral messenger RNA (mRNA) from 14 high-risk HPV types (16,18,31,33,35,39,45,51,52,56,58,59,66,68). Cervical sources are required for HPV testing. If a vaginal source from a patient who has had a total hysterectomy with removal of cervix was submitted, please contact the testing laboratory for alternative testing options. For additional information, please refer to http://education.Joturl/faq/QWB661e6 (This link if provided for information/ educational purposes only.) Swab Cervix uteri structure / Unknown 02/27/2023 8:00 PM EDT 03/01/2023 8:47 AM EDT Narrative [facility] - 03/03/2023 12:35 PM EDT EXPLANATORY NOTE: The Pap is a screening test for cervical cancer. It is not a diagnostic test and is subject to false negative and false positive results. It is most reliable when a satisfactory sample, regularly obtained, is submitted with relevant clinical findings and history, and when the Pap result is evaluated along with historic and current clinical information. The analytical performance characteristics of this assay, when used to test SurePath(TM) specimens have been determined by [employer]. The modifications have not been cleared or approved by the FDA. This assay has been validated pursuant to the CLIA regulations and is used for clinical purposes. For additional information, please refer to https://education.Stockpile.AFG Media/faq/XQE144 (This link is being provided for information/ educational purposes only.) [facility] - NO BLOOD DRAW Final Resu lt Performing Organization Address City/[facility]/ZIP Co de Phone Number [facility] [address] [address], [facility] [address] [place] [address] * HEPATITIS A,B,C PANEL (01/06/2021 3:02 PM EST) HEPATITIS B SURFACE ANTIBODY NEGATIVE NEGATIVE [facility] HEPATITIS B SURFACE ANTIGEN NEGATIVE NEGATIVE [facility] Comment: Over the counter supplements containing high doses of biotin may interfere with this assay. ??If interference is suspected, patients shoud be retested after refraining from biotin supplements for 72 hours. HEPATITIS C VIRUS DIAGNOSTIC NEGATIVE NEGATIVE [facility] HEPATITIS A ANTIBODY TOTAL NEGATIVE NEGATIVE [facility] Comment: Over the counter supplements containing high doses of biotin may interfere with this assay. ??If interference is suspected, patients shoud be retested after refraining from biotin supplements for 72 hours. HEPATITIS B CORE ANTIBODY NEGATIVE NEGATIVE [facility] Blood Blood / Unknown 01/06/2021 3 :02 PM EST 01/06/2021 7:47 PM EST Narrative [facility] - 01/06/2021 8:44 PM EST [employer] [address] Skilled Trades Teacher [place] [id number] ORD# [id number] [facility] - BLOOD DRAW Edited Result - Final Performing Organization Address City/[facility]/ZIP Co de Phone Number [address] [address], * HIV-1 & HIV-2 ANTIBODIES (10/26/2018 11:55 AM EST) HIV 1 AND 2 ANTIBODY SCREEN NEGATIVE NEGATIVE [facility] Comment: This assay is a 4th generation assay allowing for earlier detection of HIV infection by detecting the presence of the HIV-1 p24 antigen as well as the traditional antibodies to HIV type 1 (including group O) and type 2. ??Use of a 4th generation assay is the current CDC recommendation for HIV screening. Blood specimen (specimen) Blood / Unknown 10/26/2018 11:55 AM EST 10/26/2018 1:39 PM EST [facility]ative [facility] - 10/26/2018 8:07 PM EST [employer] [address] Skilled Trades Teacher [place] [id number] ORD# [id number] Wu Monique NP LAB - BLOOD DRAW Final Result [address] [address], from Last 3 Months or Most Recently Relevant to Health Maintenance Insurance [facility] Member Subscriber Plan / Payer (Ef fective 2018-Present) Name:Pratibha Rodriguez Relation to Subscriber:Self Name:Pratibha Rodriguez Payer ID:[id number] Group ID:Not on file Type:Indemnity Address: [place] [address] [place] [address] Care Teams Library Services Assistant Relationship Specialty Start Date End Date [facility] Ang PA [address] [place] [address] PCP - General Internal Medicine 05/07/18
--- OUTSIDE RECORDS SUMMARY | 2025-03-07 12:51 | XMS_ITS | Clinical Summary ---
Author Organization [facility] Address [address] [place] [address] Phone Care Team Providers Care Hand Mexican Food Maker Name Role Phone [place] Ang Primary Care Provider [phone] Medications docusate sodium (COLACE) 100 mg capsule TAKE 1 CAPSULE BY MOUTH TWICE A DAY 60 capsule 11 11/27/2024 Active Encounters Date Type Department Care Team Description 01/09/2025 9:52 AM EST - 01/09/2025 11:59 PM EST Hospital Encounter [facility] at [address] [id number] Encounter for screening mammogram for breast cancer Discharge Disposition: Home or Self Care from Last 3 Months Surgical History Surgery Date Site/Laterality Comments COLONOSCOPY PROCEDURE: HISTORICAL COLONOSCOPY Medical History Medical History Date Comments Change in bowel habits DX:Change in bowel habits Rectal pain DX:Rectal pain Rectal bleeding DX:Rectal bleedi ng Hemorrhoids DX:Hemorrhoids Change in bowel habit DX:Change in bowel habit Irritable bowel syndrome DX:Irri table bowel syndrome Social History Tobacco Use Types Packs/Day Years Used Date Smoking Tobacco: Never Assessed Comments No Sex and Gender Information Value Date Recorded Sex Assigned at Female 01/08/2025 11:51 AM EST Legal Sex Female 4:50 AM EST Gender Identity Female 01/08/2025 11:51 AM EST Sexual Orientation Not on file Obstetrics History Para Term AB IAB SAB Ectopic Multiple Livin g Live Births 1 Last Filed Vital Signs Vital Sign Reading Time Taken Comments Blood Pressure 125/65 08/21/2023 11:01 AM EDT Pulse 95 08/21/2023 11:01 AM EDT Temperature - - Respiratory Rate - - Oxygen Saturation - - Inhaled Oxygen Concentration - - Weight 77.1 kg (170 lb) 01/09/2025 10:04 AM EST Height 157.5 cm (5' 2 ) 01/09/2025 10:04 AM EST Body Mass Index 31.09 01/09/2025 10:04 AM EST Plan of Treatment Health Maintenance Due Date Last Done Comments Cervical Cancer Screening: Pap Smear 2001 Hepatitis C Screening 10/09/2022 Medicare Annual Wellness Visit 10/09/2022 Social Influencers of Health Screening 10/09/2022 COVID-19 Vaccine ( season) 2024 06/22/2022, 08/12/2021, 07/15/2021 Depression Screening 06/12/2025 06/12/2024 Breast Cancer Screening 01/09/2027 01/10/20, 12/14/2023, 12/06/2022 Cholesterol Screening (Lipid Panel) 09/11/2028 09/11/2023, 09/11/2023, 07/21/2022, Additional history exists DTaP,Tdap,and Td Vaccines (3 - Td or Tdap) 10/23/2028 10/23/2018, 08/07/2015 HIV Screening Completed 10/26/2018 Hepatitis B Vaccines Completed 04/14/2023, 03/17/20 23 Pneumococcal Vaccine: Pediatrics (0 to 5 Years) and At-Risk Patients (6 to 64 Years) Aged Out 06/19/2023, 10/23/2018 No longer eligibl e based on patient's age to complete this topic Influenza Vaccine Completed 07/19/2024, , 07/21/2022, Additional history exists HIB Vaccines Aged Out No longer eligi ble based on patient's age to complete this topic HPV Vaccines Aged Out No longer eligi ble based on patient's age to complete this topic Hepatitis A Vaccines Aged Out No long er eligible based on patient's age to complete this topic IPV Vaccines Aged Out No longer eligi ble based on patient's age to complete this topic MMR Vaccines Aged Out No longer eligi ble based on patient's age to complete this topic Meningococcal ACWY Vaccine Aged Out N o longer eligible based on patient's age to complete this topic Meningococcal B Vaccine Aged Out No l onger eligible based on patient's age to complete this topic RSV Immunization Patients Under 20 months Aged Out No longer eligible based on patient's age to complete this topic Varicella Vaccines Aged Out No longer eligible based on patient's age to complete this topic Procedures Procedure Name Priority Date/Time Associated Diagnosis Comments MG MAMMO DIGITAL SCREENING W WILLIAM BILAT Routine 01/09/2025 10:09 AM EST Encounter for screening mammogram for breast cancer from Last 3 Months Results * MG Mammo Digital Screening w William bilat (01/09/2025 10:09 AM EST) Anatomical Region Laterality Modality Breast Bilateral Mammography 01/09/2025 11:2 8 AM EST Impressions 01/09/2025 11:37 AM EST No mammographic evidence of malignancy. ?? No suspicious interval change. A negative mammogram in the presence of a clinically suspicious palpable abnormality does not preclude the possibility of malignancy or alter the indications for biopsy. ASSESSMENT: ?? BI-RADS 2: BENIGN RECOMMENDATION(S): 1: Routine screening mammogram BILATERAL in 1 year. [facility] location[facility] at [address], [address] -------- FINAL REPORT -------- Dictated By: Edwin Sim Dictated Date: 01/09/2025 11:28 ET Assigned Physician: Edwin Sim Reviewed and Electronically Signed By: Ediwn Sim Signed Date: 01/09/2025 11:37 ET Workstation ID: [id number] Transcribed By: Self Edit Transcribed Date: 01/09/2025 11:28 ET Narrative 01/09/2025 11:37 AM EST EXAM: ??SCREENING MAMMOGRAPHY, BILATERAL HISTORY: ??SCREENING. ??No additional history. COMPARISON: ??12/14/2023, 12/06/2022 TECHNIQUE: Synthesized CC and MLO projections of each breast. ??Tomosynthesis of each breast in the CC and MLO projections. ADDITIONAL IMAGING: None Computer-aided detection was employed with the iCAD ??ProFound AI 3-D. TISSUE DENSITY: The breasts are heterogeneously dense, which may obscure small masses. (BI-RADS category C) FINDINGS: RIGHT BREAST: No suspicious mass. No suspicious calcification. No distortion. ?? No additional suspicious right breast findings LEFT BREAST: No suspicious mass. No suspicious calcification. No distortion. ?? Typically benign calcification associated with a nonenlarged left axillary lymph node. Procedure Note Edwin Sim MD - 01/09/2025 EXAM: SCREENING MAMMOGRAPHY, BILATERAL HISTORY: SCREENING. No additional history. COMPARISON: 12/14/2023, 12/06/2022 TECHNIQUE: Synthesized CC and MLO projections of each breast.Tomosynthesis of each breast in the CC and MLO projections. ADDITIONAL IMAGING: None Computer-aided detection was employed with the iCAD ProFound AI 3-D. TISSUE DENSITY: The breasts are heterogeneously dense, which may obscuresmall masses. (BI-RADS category C) FINDINGS: RIGHT BREAST: No suspicious mass. No suspicious calcification. No distortion. Noadditional suspicious right breast findings LEFT BREAST: No suspicious mass. No suspicious calcification. No distortion.Typically benign calcification associated with a nonenlarged left axillarylymph node. IMPRESSION: No mammographic evidence of malignancy. No suspicious interval change. A negative mammogram in the presence of a clinically suspicious palpableabnormality does not preclude the possibility of malignancy or alter theindications for biopsy. ASSESSMENT: BI-RADS 2: BENIGN RECOMMENDATION(S): 1: Routine screening mammogram BILATERAL in 1 year. [facility]amm[facility] location[facility] at [address], [address] -------- FINAL REPORT -------- Dictated By: Edwin Sim Dictated Date: 01/09/2025 11:28 ET Assigned Physician: Edwin Sim Reviewed and Electronically Signed By: Edwin Sim Signed Date: 01/09/2025 11:37 ET Workstation ID: [id number] Transcribed By: Self Edit Transcribed Date: 01/09/2025 11:28 ET us Self Referral Sppl IMG BI PROCEDURES Final Resul t from Last 3 Months Insurance [employer] MEDICARE Member Subscriber Plan / Payer (Ef fective 2018-Present) Name:Michael Haritha Natalia Relation to Subscriber:Self Name:Michael Pratibha Mg Maria Payer ID:[id number] Group ID:[id number] Type:Not on file Address: [place] [address] [address] [phone] Care Teams Hand Mexican Food Maker Relationship Specialty [place] [address] [place] [phone] PCP - General 11/23/22
[2025-03-07 12:55] LABS: MANUAL DIFF FLAG NO
[2025-03-07 13:48] LABS: Basophils Percent Auto 0.7 % (0-2); Eosinophils Absolute Auto 0.1 X10*3/uL (0.0-0.4); Eosinophils Percent Auto 2.4 % (0-4); Hematocrit 34.2 % (37.0-47.0); Hemoglobin 10.7 g/dl (12.0-16.0); Imm Gran Abs Auto 0.01 X10*3/uL (0.00-0.03); Imm Gran Pct Auto 0.2 % (0.0-0.4); Lymphocytes Absolute Auto 1.5 X10*3/uL (1.2-4.9); Mean Corpuscular HGB Conc 31.3 g/dl (31.0-35.0); Mean Corpuscular Hemoglobin 25.8 pg (27.0-33.0); Mean Corpuscular Volume 82.6 fL (80.0-98.0); Mean Platelet Volume 10.2 fL (9.4-12.3); Monocytes Absolute Auto 0.4 X10*3/uL (0.1-1.2); Monocytes Percent Auto 7.6 % (2-11); Neutrophils Absolute Auto 3.3 x10*3/uL (2.0-8.3); Neutrophils Percent Auto 62.1 % (45-73); Platelet Count 374 X10*3/uL (160-400); Red Blood Count 4.14 X10*6/uL (4.20-5.50); Red Cell Distribution Width 20.5 % (11.0-16.0); White Blood Count 5.4 X10*3/uL (4.8-10.8)
[2025-03-07 14:19] LABS: Alanine Aminotransferase 17 U/L (0-31); Alkaline Phosphatase 38 U/L (39-117); Anion Gap 9 (12-20); Aspartate Amino Transferase 22 U/L (5-31); Bilirubin Total 0.4 mg/dL (0.0-1.0); Blood Urea Nitrogen 12 mg/dL (9-16); Calcium 8.8 mg/dL (8.4-10.2); Carbon Dioxide 26 mmol/L (22-29); Chloride 110 mmol/L (96-108); Creatinine Clr Calc Pharmacy 97.8; Estimated Glomerular Filt Rate > 60; Glucose Random 82 mg/dL (60-115); Sodium 141 mmol/L (135-145); Total Protein 6.6 g/dL (6.5-8.0)
--- NOTE | 2025-03-26 09:47 | HO.ANESPROP2 ---
Documented by User: Rocio Velez NP 03/26/25 09:53 HPI - Anesthesia Eval Consult details Narrative: 44yo F for L4-5 Decompession (Discectomy) PAT with Dr Barron 03/07/25 s/p Ant Cerv Discectomy w/ fusion 02/2024 with GA- ETT 7 PMFSH Active Problems Active Problems: All Active Problems Lumbar radiculopathy (Acute) S/P cervical spinal fusion (Acute) S/P spinal surgery (Acute) Lumbar stenosis (Acute) Cervical radiculopathy (Acute) Past Medical History Medical History Chest pressure Marijuana use History of headache Numbness Murmur Osteoarthritis Bipolar 1 disorder Cervicalgia Spinal stenosis Depression Borderline personality disorder Constipation Low vitamin D level Anemia Persistent moderate somatic symptom disorder Class II obesity Sleep disturbance Anxiety Thyroid disease Back pain Family History Family history of problems with anesthesia: No Surgical History Surgical History Hx of fusion of cervical spine Hx of cervical spine surgery H/O colonoscopy Hx of section History of Problems with Anesthesia: No Social History Social History Are you a primary hemodialysis patient care specialist to a significant other at home: No Do you presently have visiting nurse or other home services: Yes (MANAGER PROGRAM) Patient Tobacco Use Status: Former Tobacco user Use of substances other than those prescribed or required for medical reasons: No Have you been hit, kicked, punched, or otherwise hurt by someone within the past year? If so, by whom?: No Are you DNR?: No Advance Directives: No Advance Directives Information Provided: Yes Advance Directives on File: No Patient : No : No Poor oral hygiene: Yes Meds Allergies Allergy/AdvReac Type Severity Reaction Status Date / Time No Known Allergies Allergy Verified 05/07/24 14:17 Home Medications ?Medication ?Instructions ?Recorded ?Confirmed ?Last Taken ?Type calcitriol 0.25 mcg capsule 0.5 mcg PO DAILY 10/09/23 03/07/25 Unknown History diclofenac sodium 1 % topical gel 2 g topical BID PRN Pain 10/09/23 03/07/25 Unknown History docusate sodium 100 mg capsule 100 mg PO BID 10/09/23 03/07/25 Unknown History ferrous gluconate 324 mg (38 mg 324 mg PO QAM 10/09/23 03/07/25 Unknown History iron) tablet polyethylene glycol 3350 17 gram 17 g PO DAILY 10/09/23 03/07/25 Unknown History oral powder packet acetaminophen 500 mg tablet 1,000 mg PO TID PRN Pain 10/10/23 03/07/25 Unknown History ascorbic acid (vitamin C) 500 mg 500 mg PO DAILY 10/10/23 03/07/25 Unknown History tablet (Vitamin C) bupropion HCl 150 mg 24 hr tablet, 300 mg PO QAM 10/10/23 03/07/25 03/27/25 History extended release hydroxychloroquine 200 mg tablet 200 mg PO DAILY 10/10/23 03/07/25 03/27/25 History levothyroxine 137 mcg tablet 137 mcg PO DAILY 10/10/23 03/07/25 03/27/25 History tramadol 50 mg tablet 50 mg PO QID PRN pain 10/10/23 03/07/25 Unknown History trazodone 50 mg tablet 50 mg PO BEDTIME PRN insomnia 02/20/24 03/07/25 Unknown History ibuprofen 800 mg tablet 800 mg PO BID PRN Pain 02/06/25 03/07/25 Unknown History progesterone micronized 200 mg 200 mg PO DIRECTED 02/06/25 03/07/25 Unknown History capsule Exam Height,Weight and Vital Signs: Height 5 ft 2 in Weight 78.018 kg Last Vital Signs Pulse 74 03/07/25 12:29 Resp 16 03/07/25 12:29 BP 124/68 03/07/25 12:29 Pulse Ox 99 03/07/25 12:29 O2 Del Method Room Air 03/07/25 12:29 Pertinent Lab Results Pertinent Lab Results: Laboratory Tests 03/07/25 12:54 WBC 5.4 RBC 4.14 L Hgb 10.7 L Hct 34.2 L MCV 82.6 MCH 25.8 L MCHC 31.3 RDW 20.5 H Plt Count 374 MPV 10.2 Immature Gran % (Auto) 0.2 Neut % (Auto) 62.1 Lymph % (Auto) 27.0 [place] % (Auto) 7.6 Eos % (Auto) 2.4 Baso % (Auto) 0.7 Lymph # (Auto) 1.5 [place] # (Auto) 0.4 Eos # (Auto) 0.1 Baso # (Auto) 0.0 Abs Immat Gran (auto) 0.01 Absolute Neuts (auto) 3.3 Absolute Nucleated RBC 0.000 Nucleated RBC % (auto) 0.0 Sodium 141 Potassium 4.0 Chloride 110 H Carbon Dioxide 26 Anion Gap 9 L BUN 12 Creatinine 0.71 Estim Creat Clear Calc 97.8 Estimated GFR > 60 Random Glucose 82 Calcium 8.8 D Total Bilirubin 0.4 AST 22 ALT 17 Alkaline Phosphatase 38 L Total Protein 6.6 Albumin 4.0 Narrative Narrative: EKG 2022 Vent. Rate : 065 BPM Atrial Rate : 065 BPM P-R Int : 158 ms QRS Dur : 070 ms QT Int : 384 ms P-R-T Axes : 046 011 007 degrees QTc Int : 399 ms Normal sinus rhythm with sinus arrhythmia Low voltage QRS Borderline ECG No previous ECGs available Assessment and Plan Assessment Anesthesia Assessment: Chart Reviewed Final Anesthetic Review Family History of Problems with Anesthesia: No History of Problems with Anesthesia: No Documented by User: Jose Velazco MD 03/27/25 10:34 PMFSH Past Medical History Medical History Chest pressure Marijuana use History of headache Numbness Murmur Osteoarthritis Bipolar 1 disorder Cervicalgia Spinal stenosis Depression Borderline personality disorder Constipation Low vitamin D level Anemia Persistent moderate somatic symptom disorder Class II obesity Sleep disturbance Anxiety Thyroid disease Back pain Cognitive capacity: good Functional capacity: independent ambulation Surgical History Surgical History Hx of fusion of cervical spine Hx of cervical spine surgery H/O colonoscopy Hx of section Social History Social History Are you a primary hemodialysis patient care specialist to a significant other at home: No Do you presently have visiting nurse or other home services: Yes (MANAGER PROGRAM) Patient Tobacco Use Status: Former Tobacco user Use of substances other than those prescribed or required for medical reasons: No Have you been hit, kicked, punched, or otherwise hurt by someone within the past year? If so, by whom?: No Are you DNR?: No Advance Directives: No Advance Directives Information Provided: Yes Advance Directives on File: No Patient : No : No Poor oral hygiene: Yes Meds Allergies Allergy/AdvReac Type Severity Reaction Status Date / Time No Known Allergies Allergy Verified 05/07/24 14:17 Home Medications ?Medication ?Instructions ?Recorded ?Confirmed ?Last Taken ?Type calcitriol 0.25 mcg capsule 0.5 mcg PO DAILY 10/09/23 03/07/25 Unknown History diclofenac sodium 1 % topical gel 2 g topical BID PRN Pain 10/09/23 03/07/25 Unknown History docusate sodium 100 mg capsule 100 mg PO BID 10/09/23 03/07/25 Unknown History ferrous gluconate 324 mg (38 mg 324 mg PO QAM 10/09/23 03/07/25 Unknown History iron) tablet polyethylene glycol 3350 17 gram 17 g PO DAILY 10/09/23 03/07/25 Unknown History oral powder packet acetaminophen 500 mg tablet 1,000 mg PO TID PRN Pain 10/10/23 03/07/25 Unknown History ascorbic acid (vitamin C) 500 mg 500 mg PO DAILY 10/10/23 03/07/25 Unknown History tablet (Vitamin C) bupropion HCl 150 mg 24 hr tablet, 300 mg PO QAM 10/10/23 03/07/25 03/27/25 History extended release hydroxychloroquine 200 mg tablet 200 mg PO DAILY 10/10/23 03/07/25 03/27/25 History levothyroxine 137 mcg tablet 137 mcg PO DAILY 10/10/23 03/07/25 03/27/25 History tramadol 50 mg tablet 50 mg PO QID PRN pain 10/10/23 03/07/25 Unknown History trazodone 50 mg tablet 50 mg PO BEDTIME PRN insomnia 02/20/24 03/07/25 Unknown History ibuprofen 800 mg tablet 800 mg PO BID PRN Pain 02/06/25 03/07/25 Unknown History progesterone micronized 200 mg 200 mg PO DIRECTED 02/06/25 03/07/25 Unknown History capsule Exam Airway Mallampati Class: II TM Dist: >3cm Neck ROM: Full Loose/Missing/Broken Teeth: No Heart: rrr Lungs: cta Assessment and Plan Final Anesthetic Review NPO: Yes ASA Class: II Final Preanesthetic Review: No Changes in Pt Med Stat, Meds/Allgs Chart Reviewed, Consent Obtained/Reviewed and Anes Risks/Benef Reviewed Patient Risk: Low Procedure Risk: Low Anesthetic Plan Anesthetic Plan: GA Disposition: Standard PACU
[2025-03-27] VITALS (12 sets, daily range): BP systolic 105–125; BP diastolic 57–72; PULSE 64–104; RESP 14–20; TEMP 36.6–36.9; O2SAT 97–100; BMI 31.6
--- NOTE | ~2025-03-27 | FL_ITS ---
EXAMINATION: FL GUIDANCE ONLY HISTORY: L4-5 Decompression COMPARISON: None available. TECHNIQUE: Fluoroscopy time: Less than 1 minute. Cumulative Dose: 4.43 mGy. DAP: 0.863 mGym2 Images: 1. FINDINGS: A single fluoroscopic spot film of the lumbar spine in the lateral projection demonstrates a probe directed toward the L4-5 intervertebral disc space from a posterior approach. FL/FL guidance in OR IMPRESSION: Fluoroscopy during procedure. Please see procedure report for additional information. Electronically signed by: Pedro Platt MD 03/27/2025 12:43 PM EDT
[2025-03-27 09:00] LABS: UPreg QC Valid YES; Urine Pregnancy NEGATIVE (NEGATIVE)
[2025-03-27] MEDS: Gabapentin 300 MG CAPSULE PO (09:03)
[2025-03-27] MEDS: methocarbamoL 750 MG TABLET PO (09:03)
[2025-03-27] MEDS: Lactated Ringers 1,000 ML 100 ML IVCONT (09:28)
--- NOTE | 2025-03-27 09:54 | MHC.SHP ---
Pre-Procedural Eval Section A - 24 Hr Update-Section A only Date of Service: 03/27/25 The patient is an INPATIENT: No Section B - Complete if H&P > 30 days Chief Complaint: Radiculopathy, lumbar region Allergies: Allergies Allergy/AdvReac Type Severity Reaction Status Date / Time No Known Allergies Allergy Verified 05/07/24 14:17 Review of Systems Sugical H&P ROS: Negative: Constitution, Cardiovascular, Respiratory, Neurological, Psychiatric, Hem-Onc, Allergic/Immunologic, Gastrointestinal, Genitourinary, Musculoskeletal, Integumentary, Endocrine and Eyes/Ears/Nose/Throat Exam Surgical H&P Exam: Normal: HEENT, Normal: Heart, Normal: Lungs, Normal: Extremities, Normal: Abdomen, Normal: Skin and Normal: Neurological (, alert) Plan Diagnosis/Plan: Unchanged I have reviewed the history and physical and performed a pertinent physical examination on my patient. No changes have occurred unless specified. L4-5 decompression with possible diskectomy Time Spent With Patient Time: Total time managing care of this patient today ___ 5 _ minutes.
--- NOTE | 2025-03-27 10:06 | P.DS_ITS ---
DS: Providers Provider Date of Service: 03/27/25 Date of discharge: 03/27/25 Primary care physician: GERA Schafer Admitting clinician: Rich Berrios DS: Diagnosis Discharge Diagnosis (1) Lumbar radiculopathy: Status: Acute DS: Summary Time Attestation Discharge Coordination Time (in mins): 5 Quality: Safe Use of Opioids Does Pt have an Active Cancer Diagnosis on the Problem List?: No Quality: Stroke Does the patient have a stroke diagnosis?: No Physical Exam Vital Signs: Vital Signs: Last Vital Signs Temp 98.4 F 03/27/25 09:19 Pulse 71 03/27/25 09:19 Resp 16 03/27/25 09:19 BP 105/68 03/27/25 09:19 Pulse Ox 98 03/27/25 09:19 O2 Del Method Room Air 03/27/25 09:19 BMI result Body Mass Index 31.6 DS: Data Data Completed and Pending Labs on day of discharge: Laboratory Results - last 24 hr 03/27/25 08:46 Urine Test NEGATIVE Discharge Plan Discharge Patient Disposition: Home, Self-Care Referrals: Salinas Ang PA [Primary Care Provider] - 1 Week Discharge Medications: New oxycodone 5 mg tablet 5 mg PO Q4H PRN (Reason: pain) Qty: 20 0RF Rx Instructions: Partial Fill upon patient request. docusate sodium [Colace] 100 mg capsule 100 mg PO BID Qty: 20 0RF Continued diazepam [Valium] 10 mg tablet 10 mg PO BEDTIME PRN (Reason: anxiety) Qty: 1 0RF Rx Instructions: take 15 minutes before going into MRI machine progesterone micronized 200 mg capsule 200 mg PO DIRECTED ibuprofen 800 mg Tablet 800 mg PO BID PRN (Reason: Pain) polyethylene glycol 3350 17 gram Powder In Packet 17 g PO DAILY docusate sodium 100 mg capsule 100 mg PO BID calcitriol 0.25 mcg capsule 0.5 mcg PO DAILY ferrous gluconate 324 mg (38 mg iron) tablet 324 mg PO QAM diclofenac sodium 1 % gel 2 g topical BID PRN (Reason: Pain) levothyroxine 137 mcg tablet 137 mcg PO DAILY ascorbic acid (vitamin C) [Vitamin C] 500 mg Tablet 500 mg PO DAILY hydroxychloroquine 200 mg tablet 200 mg PO DAILY acetaminophen 500 mg tablet 1,000 mg PO TID PRN (Reason: Pain) tramadol 50 mg tablet 50 mg PO QID PRN (Reason: pain) bupropion HCl 150 mg Tablet Extended Release 24 Hr 300 mg PO QAM trazodone 50 mg tablet 50 mg PO BEDTIME PRN (Reason: insomnia) Discontinued tranexamic acid 650 mg tablet 1,300 mg PO DIRECTED Discharge Orders: Discharge Order (Routine); Ordered 03/27/25 Ordered By: Chaim Black Diet: Advance to usual diet Activity on Discharge: As tolerated Activity Restrictions/Additional Instructions: After your spinal surgery we ask you to observe the following restrictions/guidelines: Activity: It is normal to feel some discomfort as you increase your activity, but that will improve with time. We ask you avoid heavy lifting or acitivities that cause pain. As a general rule, 8lbs is a safe limit for lifting right after surgery. Walk as much as you feel comfortable but not to exhaustion. You will feel extra tired the first few days after surgery. Stay well hydrated. It is OK to walk up and down stairs You may return to driving when you are off narcotics (such as vicodin, oxycodone, dilaudid, etc), and you are back to normal functional capacity. If you have any concerns please check with office before driving. Return to work is specific to each patient and each surgery, so please speak with your doctor/PA at first follow up. Please bring paperwork such as FMLA at that time if you need it filled out. Medications: For optimum pain control, it is best to start with a combination of 500 mg of Tylenol every 4 hours with 600 mg of Motrin every 8 hours, and use narcotics as needed in between for breakthrough pain. We will give you a short supply of narcotics after surgery (usually one weeks worth). If you need more please call the office but do not use more than prescribed. You will need to give our office 48 hours notice if you need narcotics refilled and we do not fill narcotics on weekends or evenings. If you are on a narcotic, it is a good idea to take a stool softener such as colace or senna to avoid constipation If you take blood thinner such as aspirin, Plavix, Coumadin, Effient, Eliquis etc for conditions such as Afib, DVT, Pulmonary embolus, coronary disease, stents etc please speak with your surgeon about specific details as to when you can resume these medications. You can resume NSAIDs on post op day 1 (eg: Motrin, Naproxen, etc). Follow up: Please call the office, , after surgery to arrange a 3 week follow up for wound check. Wound Care: You may remove your dressing on the first day after surgery. ?You may ?leave open to air. Please do not remove the steri strips underneath. they will fall off on their own in one week. IT IS NORMAL FOR THE WOUND TO OOZE OR BE BLOODY FOR A FEW DAYS AFTER SURGERY. ?IF THIS HAPPENS JUST PLACE NEW DRESSING OVER IT TO AVOID STAINING CLOTHES. You may shower on post op day # 1 We ask that you do not let the water soak the wound. If it does get wet, just towel dry lightly. Please do not scrub your incision or place any type of chemical/ointment on the wound. No tub baths, pools or jacuzzis for one month. If you have any leaking or redness from your wound, or fevers, please call office Print Language: Danish
[2025-03-27] MEDS: Scopolamine 1.5 MG PATCH.TD.3 TRANSDERMA (10:39)
[2025-03-27] MEDS: ceFAZolin Sodium/Dextrose,Iso 2 GM/50 ML PIGGYBACK IV (11:21)
--- NOTE | 2025-03-27 12:09 | W.PM.OPN ---
Operative Note Operative Note Date of Service: 03/27/25 Narrative: Preoperative diagnosis: Bilateral lumbar radiculopathy due to central disc herniation Postoperative diagnosis: Same Procedure: L4-5 lumbar microdiskectomy with microscope Surgeon: Rich Berrios MD, PhD Acetylene Torch Burner: manuel Booth This patient is suffering from bilateral leg pain. MRI shows a central disc herniation causing bilateral L5 nerve root compression. The patient was offered a lumbar microdiskectomy to decompress the nerve root. The procedure complications were explained. The patient was consented. The patient was brought to the operating room and endotracheally intubated. The patient was turned in a prone position on the Ankit frame. Prepping and draping was done followed by time-out. A mid lumbar incision was made followed by release of the paravertebral muscles on the left side to expose the L4-5 interspace. An intraoperative x-rays obtained to confirm the correct level. The microscope was brought in. A left L4 laminotomy was done followed by opening of the flavum ligament. The L5 nerve root was identified and retracted medially to expose the L4-5 disc space, which expose the large disc bulge. An annulotomy was done after which disc material was tried retrieved from the disc space. I pushed the central disc herniation into the disc space and resected it. This led to a good decompression of the thecal sac. A nerve root could be easily passed along the nerve roots, a sign of adequate decompression. Hemostasis was done. The microscope was removed. Marcaine was injected intramuscularly.The incision was closed in two layers. Steri-Strips used to approximate the incision. An op-site were taken there was used to cover the incision. All sponge and needle counts were correct. Patient was extubated and transported in stable condition to recovery room. this procedure was done with the aid of a physician accounting manager assistant controller who performed the initial exposure until the microscope was brought in and performed the closure of the incision. Anesthesia: General Blood loss: 10 mL Complications: None Specimen: None Surgical time: 45 minutes Disposition: Discharge home
[2025-03-27] MEDS: fentaNYL citrate/PF 100 MCG/2 ML VIAL 25 MCG IVPUSH ×4 (12:45→13:30)
[2025-03-27] MEDS: oxyCODONE HCl Immed Release 5 MG TABLET PO (13:54)
== END 2025-03-27 14:43 | disposition home or self-care (01) ==
PROVIDERS: Anesthesiology; Nurse Practitioner; PCP Physician Assistant; Visit Provider Neurological Surgery
PROC: (CPT 63030; principal; 2025-03-27 11:50)
DX: M51.16 Intervertebral disc disorders with radiculopathy, lumbar region (principal); M54.50 Low back pain, unspecified; M79.605 Pain in left leg; M79.604 Pain in right leg; E55.9 Vitamin D deficiency, unspecified; D64.9 Anemia, unspecified; F31.9 Bipolar disorder, unspecified; F41.9 Anxiety disorder, unspecified; Z79.1 Long term (current) use of non-steroidal anti-inflammatories (NSAID); Z79.899 Other long term (current) drug therapy; Z98.1 Arthrodesis status; Z98.890 Other specified postprocedural states
CPT/HCPCS: 63030; 36415; 80053; 81025; 85025; J0131; J0690; J1100; J2003; J2250; J2405; J2704; J3010

== ENCOUNTER → 2025-03-27 08:33 | Outpatient (BNV) | payer OTHER, SELFPAY | PROVIDERS: PCP Physician Assistant; Visit Provider Neurological Surgery | DX: M54.16 Radiculopathy, lumbar region (principal) | CPT/HCPCS: 63030; 99499 ==

== ENCOUNTER 2025-04-16 14:36 | Outpatient (AMB) | payer OTHER, SELFPAY ==
--- NOTE | 2025-04-16 15:03 | A.SPINEOV_ITS ---
Intake Visit Reasons: 1st post op Intake Note: is here today for her 1st post op. Industrial Staff Nurse Required: No Allergies No Known Allergies Allergy (Verified 05/07/24 14:17) Assessment & Plan Assessment & Plan (1) S/P spinal surgery: Code(s): Z98.890 - Other specified postprocedural states Category: Medical Plan Procedure: L4-5 lumbar microdiskectomy Pratibha comes in today for her 1st postoperative visit after having L4-[address] Berrios. She reports that her right-sided leg pain has significantly improved since surgery, however she still has pain that shoots down her left lower extremity into her left posterior gastrocnemius. She states that this pain does worsen at night. Thankfully, she states that for the first 1 week after surgery she was essentially pain-free, however the pain in the left-sided returned shortly thereafter. It sounds like she is suffering from some postoperative inflammation that set in during the 1st week after surgery. She asked several questions regarding the postoperative healing course, all of which I answered to the best of my ability. No new neurological deficits. The patient ambulates with the assistance of a cane. Her posterior incision site is closed and well healed. I would like to follow up with Zoë again in 6 weeks. For the time being I will send in a prescription refill for her oxycodone. Rell Berrios MD,PhD [facility] Medications: Changed From oxycodone Partial Fill upon patient request. 5 mg PO Q4H PRN 20 tabs 0RF pain To oxycodone Partial Fill upon patient request. 5 mg PO Q6H PRN 20 tabs 0RF pain Coding Level of Care Code Global (96933) Diagnoses S/P spinal surgery Z98.890
--- OUTSIDE RECORDS SUMMARY | 2025-04-16 16:47 | XMS_ITS | Clinical Summary ---
Author Organization [facility] Address [address] [place] [address] Phone Care Team Providers Care Legal Writing Professor Name Role Phone Salinas Ang Primary Care Provider [phone] Medications docusate sodium (COLACE) 100 mg capsule TAKE 1 CAPSULE BY MOUTH TWICE A DAY 60 capsule 11 11/27/2024 Active Surgical History Surgery Date Site/Laterality Comments COLONOSCOPY [...] season) 2024 06/22/2022, 08/12/2021, 07/15/2021 Depression Screening 03/13/2026 03/13/2025 Breast Cancer Screening 01/09/2027 01/10/20, 12/14/2023, 12/06/2022 [...] for breast cancer from Last 3 Months or Most Recently Relevant to Health Maintenance Results * MG Mammo Digital Screening w [...] year. 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 TISSUE DENSITY: The breasts are [...] year. Mammography location: [facility] at [address], [id number] -------- FINAL REPORT -------- Dictated By: Edwin Sim Dictated Date: 01/09/2025 11:28 ET Assigned Physician: Edwin Sim Reviewed and Electronically Signed By: Edwin Sim Signed Date: 01/09/2025 11:37 ET Workstation ID: [id number] Transcribed By: Self Edit Transcribed Date: 01/09/2025 11:28 ET us Self Referral Sppl IMG BI PROCEDURES Final Resul t from Last 3 Months or Most Recently Relevant to Health Maintenance Insurance [employer] MEDICARE Member Subscriber Plan / Payer (Ef fective 2018-Present) Name:Pratibha Rowell Relation to Subscriber:Self Name:Pratibha Rowell Payer ID:[id number] Group ID:[id number] Type:Not on file Address: [place] [address] [address] [id number] Care Teams Legal Writing Professor Relationship Specialty Start Date End Date Salinas Ang PA [address] [place] [address] PCP - General 11/23/22
== END 2025-04-16 15:17 | disposition home or self-care (01) ==
LOC: HO.HNS 14:37
PROVIDERS: PCP Physician Assistant; Visit Provider Physician Assistant
DX: Z98.890 Other specified postprocedural states (principal)
CPT/HCPCS: 99024

== ENCOUNTER → 2025-04-16 14:36 | Outpatient (BNVA) | payer OTHER, SELFPAY | PROVIDERS: PCP Physician Assistant; Visit Provider Physician Assistant | DX: Z98.890 Other specified postprocedural states (principal) | CPT/HCPCS: 99212 ==

== ENCOUNTER 2025-06-06 14:50 | Outpatient (AMB) | payer OTHER, SELFPAY ==
--- OUTSIDE RECORDS SUMMARY | 2025-06-05 11:00 | XMS_ITS | Encounter Summary ---
Author Organization [facility] Address [address] [place] [address] Care Team Providers Care Software Engineering Project Manager Name Role Phone Salinas Ang Primary Care Provider [phone] Reason for Referral * Physical Therapy (Routine) - New Request Specialty Diagnoses / Procedures Referred By Haritha perez Referred To Contact Diagnoses Acute pain of both shoulders Chronic midline low back pain without sciatica Barbara Olmos NP [address] [place] [address] Phone: tel: fax: Referral ID Status Reason Start Date Expiration Date Visits Requested Visits Authorized [id number] New Request Continuity of Care 06/05/2025 06/05/2026 1 1 Comments Patient is 44 year old female with complaint of bilateral shoulder pain and low back pain. Please eval and treat. * (Routine) - New Request Specialty Diagnoses / Procedures Referred By Haritha perez Referred To Contact Diagnoses Dysphagia, unspecified type Throat discomfort Procedures BARIUM SWALLOW ESOPHAGUS Barbara Olmos NP [address] [place] [address] Phone: tel: fax: Referral ID Status Reason Start Date Expiration Date Visits Requested Visits Authorized [id number] New Request Continuity of Care 06/05/2025 06/05/2026 1 1 Reason for Visit * Reason Comments Sore Throat Sore throat pain tammy cribed to be sharp, difficulty swollowing, some redness seen but denies any white patches. Shoulder Pain Bilateral shoulder p ain present for 1 month. No visual abnormalities, no injury sustained. Pain appeared out of the blue, and severity worsening. Hindering her ability to sleep Encounter Details Date Type Department Care Team (Late st Contact Info) Description 06/05/2025 11:00 AM EDT Office Visit [facility] [address] [place] [address] Barbara Olmos, KUMAR [address] [place] [address] Social History Tobacco Use Types Packs/Day Years [...] Orientation Straight 06/08/2018 7: 52 AM PDT documented as of this encounter Last Filed Vital Signs Vital Sign Reading Time Taken Comments Blood Pressure 104/70 06/05/2025 10:52 AM EDT Pulse 72 06/05/2025 10:52 AM EDT Temperature - - Respiratory Rate 16 06/05/2025 10:52 AM EDT Oxygen Saturation 99% 06/05/2025 10:52 AM EDT Inhaled Oxygen Concentration - - Weight 78 kg (171 lb 14.4 oz) 06/05/2025 10:52 A M EDT Height 154.9 cm (5' 1 ) 06/05/2025 10:52 AM EDT Body Mass Index 32.48 06/05/2025 10:52 AM EDT documented in this encounter Progress Notes * Barbara Olmos NP - 06/05/2025 11:00 AM EDT SUBJECTIVE Patient declines intern today. Patient speaks Nigerian. Accompanied by BAG CUTTER HPI: Pratibha Rodriguez is a 44 year old female who presents to clinic today for a few concerns. The patient reports experiencing sore throat and difficulty swallowing for the past month. She declines feversor chills. She reports experiencing a sensation that food sometimes feels stuck in the throat and she has trouble swallowing liquids and solids. She denies any episodes of choking. Patient reports she recently had laminectomy lumbar compression surgery about 2 months ago and reports that she continues to have a lot of pain and discomfort to her lower back. She reports since surgery her numbness and tingling to her legs have improved but back pain is still present. She reportscontinues with pain regimen of salon patches, TEN's machine prescription tylenol, tramadol and ibuprofen. She reports upcoming appointment with surgeon tomorrow for further evaluation. Patient also complains of bilateral shoulder and neck pain. She reports chronic right shoulder painbut left shoulder pain has been ongoing for about 1 month. Patient denies trauma or injury to the area. She is requesting for change of bowel medication stating she continues to have constipation with current regimen and iron tablets. No past medical history on file. Current Outpatient Medications Medication Sig Dispense Refill ??? capsaicin (ICY HOT) 0.025 % patch Place 1 Patch onto the skin every 8 (eight) hours as needed for pain. 30 Patch 2 ??? psyllium seed, with dextrose, (METAMUCIL) powder Take 3 g of fiber by mouth once daily. 368 g 0 ??? ibuprofen 800 mg tablet TAKE 1 TABLET BY MOUTH TWICE A DAY WITH A MEAL 180 Tablet 1 ??? levothyroxine 125 mcg tablet TAKE 1 TABLET BY MOUTH EVERY MORNING BEFORE BREAKFAST NEW DOSE - PT TO STOP LEVOTHYROXINE 137 MCG 90 Tablet 3 ??? sertraline (ZOLOFT) 25 mg tablet Take 1 Tablet by mouth once daily for 90 days. 30 Tablet 2 ??? buPROPion XL (WELLBUTRIN XL) 300 mg 24 hr tablet Take 1 Tablet by mouth every morning for 90 days. 30 Tablet 2 ??? traZODone (DESYREL) 100 mg tablet Take 1 Tablet by mouth nightly at bedtime as needed for sleepfor up to 90 days. 90 Tablet 0 ??? VITAMIN C 500 mg tablet TAKE 1 TABLET BY MOUTH EVERY DAY 90 Tablet 1 ??? docusate sodium (COLACE) 100 mg capsule Take 1 Capsule by mouth 2 (two) times daily. 90 Capsule3 ??? tranexamic acid (LYSTEDA) 650 mg tablet TAKE 2 TABLETS BY MOUTH 3 (THREE) TIMES DAILY DURING MENSES ONLY 60 Tablet 4 ??? calcitrioL (ROCALTROL) 0.5 mcg capsule TAKE 1 CAPSULE BY MOUTH EVERY DAY 90 Capsule 0 ??? traMADoL (ULTRAM) 50 mg tablet Take 1 Tablet by mouth every 6 (six) hours as needed for pain. Max Daily Amount: 200 mg 30 Tablet 2 ??? lidocaine (LIDODERM) 5 % patch Place 1 Patch onto the skin daily Apply 1 patch to the affected area for a maximum of 12 hours, followed by removal for 12 hours.. 30 Patch 1 ??? folic acid-vit B6-vit B12 2.5-25-2 mg tablet Take 1 Tablet by mouth once daily with breakfast 90 Tablet 3 ??? ferrous gluconate (FERGON) 324 mg (38 mg iron) tablet Take 1 Tablet by mouth once daily with breakfast 90 Tablet 1 ??? clonazePAM (KLONOPIN) 0.5 mg tablet Take 1 Tablet by mouth once daily as needed for anxiety forup to 180 days 30 Tablet 5 ??? acetaminophen (TYLENOL) 500 mg tablet Take 2 Tablets by mouth every 6 (six) hours as needed forpain 90 Tablet 1 ??? diclofenac sodium (VOLTAREN) 1 % gel Apply topically 2 (two) times daily to affected area 100 g5 ??? progesterone micronized (PROMETRIUM) 200 mg capsule Take 1 Capsule by mouth once daily From day15 of the cycle for two weeks or until menses occur. 42 Capsule 3 ??? lidocaine (LIDODERM) 5 % patch Place 1 Patch onto the skin once daily (every 24 hours) 12 hourson, 12 hours off. 30 Patch 0 ??? underpads Use one underpad per night for urinary incontinence. 90 Each 2 ??? walker (ULTRA-LIGHT ROLLATOR) Please dispense one Rollator walker which is folding with seat and wheels. 1 Each 0 ??? walker Second Rolator needed for upstair. 1 Each 0 ??? scopolamine (TRANSDERM-SCOP) 1 mg over [address] 1 PATCH ONTO THE SKIN EVERY THIRD DAY(EVERY 72 HOURS) 24 Patch 0 ??? traMADoL (ULTRAM) 50 mg tablet TAKE 1 TABLET BY MOUTH EVERY 4 (FOUR) HOURS NEEDED FOR PAIN FOR PAIN 30 Tablet 0 ??? cane Please dispense one cane for patient with profound gait disturbance. 1 Each 0 ??? walker Please dispense one Rollator walker which is folding with seat and wheels. 1 Each 0 ??? walker Please dispense one Rollator walker which is folding with seat and wheels. 1 Each 0 ??? naloxone (NARCAN) 4 mg/actuation nasal spray Place 1 [place] into the nostril(s) as needed for opioid reversal (Overdose) 1 Each 99 ??? hydrOXYchloroQUINE (PLAQUENIL) 200 mg tablet Take 200 mg by mouth 1 time each day No current facility-administered medications for this visit. Review of system negative except for HPI. OBJECTIVE Vitals reviewed Vitals: 06/05/25 1052 BP: 104/70 BP Site: Left Arm BP Position: Sitting BP Cuff Size: Regular Adult Pulse: 72 Resp: 16 SpO2: 99% Weight: 171 lb 14.4 oz (78 kg) Height: 5' 1 (1.549 m) Estimated body mass index is 32.48 kg/m?? as calculated from the following: Height as of this encounter: 5' 1 (1.549 m). Weight as of this encounter: 171 lb 14.4 oz (78 kg). The 10-year ASCVD risk score (Evelyne WILKINSON, et al., 2019) is: 0.3% Body mass index is 32.48 kg/m??. Lifestyle measures:BMI follow up plan: The patient was counseled regarding nutrition and physical activity. Depression screen: PHQ-9 Total Score (Auto Calculated) 0 at 03/13/2025 10:05 AM 03/13/2025 10:05 AM How many times in the past year have you had 4 or more drinks in a day? NONE How many times in the past year have you used a recreational drug or used a prescription medicationfor nonmedical reasons? NONE Did patient decline PHQ screening? No Little interest or pleasure in doing things Not at all Feeling down, depressed or hopeless [include irritable if under 18] Not at all PHQ2 Score 0 Little interest or pleasure in doing things Not at all Feeling down, depressed or hopeless [include irritable if under 18] Not at all Trouble falling or staying asleep, or sleeping too much Not at all Feeling tired or having little energy Not at all Poor appetite or overeating Not at all Feeling bad about yourself - or that you are a failure or have let yourself or your family down Notat all Trouble concentrating on things, such as reading the newspaper or watching television? Not at all Moving or speaking so slowly that other people could have noticed? Or the opposite - being so fidgety or restless that you have been moving around a lot more than usual Not at all Thoughts you would be better off or of hurting yourself in some way Not at all If you checked off any problems, how difficult have these problems made it for you to do your work,take care of things at home, or get along with other people? Not difficult at all PHQ-9 Total Score (Auto Calculated) 0 Depression Severity: None-minimal Depression screening:DEPRESSION FU PROVIDED ( CMS-2): Assessed, follow-up as needed Physical Exam Constitutional: General: She is not in acute distress. Appearance: Normal appearance. She is not ill-appearing. HENT: Head: Normocephalic and atraumatic. Cardiovascular: Rate and Rhythm: Normal rate and regular rhythm. Heart sounds: Normal heart sounds. No murmur heard. Pulmonary: Effort: Pulmonary effort is normal. No respiratory distress. Breath sounds: Normal breath sounds. Musculoskeletal: Right shoulder: Tenderness present. No swelling. Decreased range of motion. Left shoulder: Tenderness present. No swelling. Decreased range of motion. Cervical back: Tenderness present. Lumbar back: Tenderness present. Comments: Patient ambulates with cane Skin: General: Skin is warm. Neurological: General: No focal deficit present. Mental Status: She is alert and oriented to person, place, and time. Psychiatric: Mood and Affect: Mood normal. ASSESSMENT & PLAN Pratibha Rodriguez is a 44 year old female patient, who was seen today for an acute visit. J02.9 Sore throat (primary encounter diagnosis) Plan : ??? ID NOW STREP A2 (negative) ??? COVID-19, ID NOW, HALL (negative) ??? Patient instructed to try using throat lozenges or salt water gargles to assist with throat pain. M25.511,M25.512 Acute pain of both shoulders Plan : ??? CAPSAICIN 0.025 % TOPICAL PATCH - Place 1 Patch onto the skin every 8 (eight) hours as needed for pain. ??? REFERRAL TO PHYSICAL THERAPY ??? Patient to continue with current medication regimen for pain management. R13.10 Dysphagia, unspecified type Plan : ??? BARIUM SWALLOW ESOPHAGUS R07.0 Throat discomfort Plan : ??? BARIUM SWALLOW ESOPHAGUS M54.50,G89.29 Chronic midline low back pain without sciatica Plan : ??? CAPSAICIN 0.025 % TOPICAL PATCH - Place 1 Patch onto the skin every 8 (eight) hours as needed for pain. ??? REFERRAL TO PHYSICAL THERAPY ??? Patient to continue with current medication regimen for pain management. K59.00 Constipation, unspecified constipation type Plan : ??? PSYLLIUM SEED (WITH DEXTROSE) ORAL POWDER - Take 3 g of fiber by mouth once daily. ??? Patient educated about importance of increasing fiber intake. ??? Encouraged patient to drink more water (at least 8 cups/day) to help soften stools. Plan Patient witched to metamucil for better control of constipation. Patient referred to barium evaluation for evaluation for dysphagia or esophageal motility abnormalities as cause of difficulty swallowing. Medications were reviewed in detail with the patient, who acknowledges understanding and agrees with the plan of care as discussed. Encouraged to follow up with any questions or concerns. Return in about 3 months (around 09/05/2025). documented in this encounter Miscellaneous Notes * Patient Instructions - Barbara Olmos NP - 06/05/2025 11:26 AM EDT If you are not able to keep your appointment please call 24-48 hours before your appointment to cancel or reschedule. documented in this encounter Plan of Treatment Upcoming Encounters Date Type Department Care Team (Late st Contact Info) Description 07/28/2025 1:40 PM EDT / Visits [facility] [address] [place] [address] AyaanKristie, HNP [address] [place] [address] Scheduled Orders Name Type Priority Associated Diagnoses Orde r Schedule BARIUM SWALLOW ESOPHAGUS Imaging Routine Dysphagia, unspecified type Throat discomfort Ordered: 06/05/2025 Scheduled Referrals Name Type Priority Associated Diagnoses Orde r Schedule REFERRAL TO PHYSICAL THERAPY Referral Routine Acute pain of both shoulders Chronic midline low back pain without sciatica Ordered: 06/05/2025 documented as of this encounter Goals Goal Patient Goal Type Associated Problems Recent Progress Patient-Stated? Author Patient s symptoms of depression/anx iety will be stable General No Rubi Lam LCSW documented as of this encounter Procedures Procedure Name Priority Date/Time Associated Diagnosis Comments COVID-19, ID NOW, HALL (POCT) Routine 06/05/2025 12:36 PM EDT Sore throat ID NOW STREP A2 (POCT) Routine 06/05/2025 12:36 PM EDT Sore throat documented in this encounter Results * COVID-19, ID NOW, HALL (POCT) Nasal Swab Routine (06/05/2025 12:36 PM EDT) COVID-19 NEGATIVE NEGATIVE [facility]- BACK OFFICE POCT INTERNAL CONTROL PASS PASS [facility]- BACK OFFICE POCT Swab Nasal structure / Unknown 06/05/2025 12:36 PM EDT us Tallon Tomasi FURNITURE UPHOLSTERER APPRENTICE LAB BODY FLUIDS AND STOOLS AMBU LATORY Final Result [facility]- BACK OFFICE POCT * ID NOW STREP A2 (POCT) Throat Swab Routine (06/05/2025 12:36 PM EDT) STREP A NEGATIVE NEGATIVE [facility]- BACK OFFICE POCT INTERNAL CONTROL PASS PASS [facility]- BACK OFFICE POCT Swab Structure of anterior portion of neck / Unknown 06/05/2025 12:36 PM EDT us Barbara Olmos FURNITURE UPHOLSTERER APPRENTICE LAB - MICROBIOLOGY AMBULATORY F inal Result [facility]- BACK OFFICE POCT documented in this encounter Visit Diagnoses Diagnosis Sore throat- Primary Acute pharyngitis Acute pain of both shoulders Dysphagia, unspecified type Throat discomfort Throat pain Chronic midline low back pain without sciatica Constipation, unspecified constipation type documented in this encounter Additional Health Concerns Assessment Noted Time PHQ-9 Depression Total Score: 0 03/13/20 25 10:05 AM PDT A Depression follow-up plan has been documented for the patient 06/05/2025 12:38 PM PDT documented as of this encounter Care Teams Software Engineering Project Manager Relationship Specialty Start Date End Date Salinas Ang PA [address] [place] [address] PCP - General Internal Medicine 05/07/18 documented as of this encounter
--- OUTSIDE RECORDS SUMMARY | 2025-06-06 14:53 | XMS_ITS | Encounter Summary ---
Author Organization [facility] Address [address] [place] [address] Care Team Providers Care Roller Hand Name Role Phone Salinas Ang Primary Care Provider [phone] Reason for Visit * Reason Onset Date Comments Med Refill 05/07/2025 Encounter Details Date Type Department Care Team (Late st Contact Info) Description 05/07/2025 Telephone [facility] - [place] [address] [place] [phone] Hung Mendoza PA [address] [place] [address] Med Refill Social History Tobacco Use Types Packs/Day Years Used Date Smoking Tobacco: Never Assessed Comments No Sex and Gender Information Value Date Recorded Sex Assigned at Female 01/08/2025 11:51 AM EST Legal Sex Female 4:50 AM EST Gender Identity Female 01/08/2025 11:51 AM EST Sexual Orientation Not on file documented as of this encounter Progress Notes * Any Christensen - 05/07/2025 8:27 AM EDT Received refill request from [facility] pharmacy for docusate sodium (COLACE) 100 mg capsule - LVMTCB & book office visit with new provider. documented in this encounter Plan of Treatment Not on file documented as of this encounter Visit Diagnoses Not on filedocumented in this encounter Care Teams Roller Hand Relationship Specialty Start Date End Date Salinas Ang PA [address] [place] [phone] PCP - General 11/23/22 documented as of this encounter
--- NOTE | 2025-06-06 15:42 | HO.SPINEOV ---
Intake Visit Reasons: 2nd post op Intake Note: is here today for her 2nd post op. Pharmacy Sales Assistant Required: No Allergies No Known Allergies Allergy (Verified 06/06/25 15:43) Assessment & Plan Assessment & Plan (1) S/P spinal surgery: Code(s): Z98.890 - Other specified postprocedural states Category: Surgical (2) S/P cervical spinal fusion: Code(s): Z98.1 - Arthrodesis status Category: Surgical Plan Dear colleague, On 06/06/2025, I saw for 2nd postoperative visit and Pratibha Rodriguez. She is status post L4-5 lumbar microdiskectomy for bilateral lumbar radiculopathy in March 2025. She states that the bilateral leg pain as disappeared. Her main complaint today is diffuse spine pain of the lumbar thoracic and neck. The neck pain is worse that radiates to her shoulders. She did have an ACDF done C5-6 in the past. She is referred to physical therapy for the neck and shoulder pains. On exam, this reviews pain over the spine. She ambulates with a cane. Neck motions are painful in all directions. The good news is that the bilateral lumbar radiculopathy has a approved. I do not think there is a surgery to address her diffuse spinal pain and she is aware of this. I do want to repeat an MRI of the cervical spine to exclude cervical pathology for neck pain. She will follow-up after the MRIs done. Rich Berrios MD, PhD Spine Fellowship Trained Neurosurgeon Director, [facility] Orders: Orders MR cervical spine wo con Today M54.12 - Radiculopathy, cervical region, Z98.1 - Arthrodesis status Coding Level of Care Code Global (55983) Diagnoses S/P spinal surgery Z98.890 S/P cervical spinal fusion Z98.1
== END 2025-06-06 16:30 | disposition home or self-care (01) ==
LOC: HO.HNS 14:51
PROVIDERS: PCP Physician Assistant; Visit Provider Neurological Surgery
DX: Z98.890 Other specified postprocedural states (principal); Z98.1 Arthrodesis status
CPT/HCPCS: 99024

== ENCOUNTER → 2025-06-06 14:50 | Outpatient (BNVA) | payer OTHER, SELFPAY | PROVIDERS: PCP Physician Assistant; Visit Provider Neurological Surgery | DX: Z98.1 Arthrodesis status (principal) | CPT/HCPCS: 99212 ==

== ENCOUNTER 2025-08-01 14:26 | Outpatient (AMB) | payer OTHER, SELFPAY ==
--- NOTE | 2025-08-01 14:30 | A.SPINEOV_ITS ---
Intake Visit Reasons: MRI f/u Intake Note: is here today to F/u on the results to his MRI. Supervisor [employer] Required: No Allergies No Known Allergies Allergy (Verified 08/01/25 14:33) Assessment & Plan Assessment & Plan (1) Cervical radiculopathy: Code(s): M54.12 - Radiculopathy, cervical region Category: Medical (2) Lumbar stenosis: Code(s): M48.061 - Spinal stenosis, lumbar region without neurogenic claudication Category: Medical Plan dear Salinas I saw in follow-up. As you know she is status post anterior cervical fusion C4-5, C5-6 as well as status post lumbar decompression surgery by Dr. Berrios. She comes in today for follow-up after a repeat cervical MRI was done to evaluate for neck pain and bilateral shoulder pain. Overall her hardware looks good on her previous x-rays of her neck. Her follow up MRI does show some mild disc degeneration but no significant findings that would explain the amount of pain she is in. What she describes to me as a escalated amount of pain and discomfort in her neck, even when something touches her his simple as lying her head on a pillow. She has pain in the middle of her back pain in her shoulders pain in her low back pain in her hips and pains down her legs. While the surgeries have generally been successful, she has never really had the relief that she is looking for from the pain she has all over her body. Unfortunately there is a small percentage of patients who just do not get better with surgery. Despite adequate postoperative findings on imaging and successful anatomical decompression at the time of surgery, she is not finding the improvements she was hoping for. I think she is falling into the category of a chronic pain patients who have inflammation all over the body, somewhat typical of fibromyalgia. It maybe worth looking into treating this, or considering this is a diagnosis for her. She seems to fit the classical description. I did give her a referral to physical therapy for her neck and her back just to continue to work on some of the soft tissue pain that she has. I would be happy to see her back anytime down the road. Total amount of time spent in this visit was 20 minutes in discussion of symptoms, cervical mri imaging results and subsequent plan of care Chaim Berrios MD,PhD [facility] Orders: Orders PT Evaluation and Treatment Today M48.061 - Spinal stenosis, lumbar region without neurogenic claudication, M54.12 - Radiculopathy, cervical region Coding Level of Care Code Est Pt Level 3 (23942) Diagnoses Cervical radiculopathy M54.12 Lumbar stenosis M48.061
--- OUTSIDE RECORDS SUMMARY | 2025-08-01 15:23 | XMS_ITS | Clinical Summary ---
Author Organization [facility] Address [address] [place] [address] Phone Care Team Providers Care [employer] Name Role Phone Salinas Ang Primary Care Provider [phone] Medications docusate sodium (COLACE) 100 mg capsule TAKE 1 CAPSULE BY MOUTH TWICE A DAY 60 capsule 11 11/27/2024 Active Encounters Date Type Department Care Team Description 07/25/2025 10:30 AM EDT Evaluation [facility] [address] [facility] [address] [place] [phone] Odilia Jeronimo, PT Acute pain of both shoulders (Primary Dx) 05/07/2025 Telephone Gastroenterology [facility] [address] [place] [phone] Hung Mendoza PA from Last 3 Months Surgical History Surgery [...] 01/09/2025 10:04 AM EST Plan of Treatment Upcoming Encounters Date Type Department Care Team (Late st Contact Info) Description 08/06/2025 11:00 AM EDT Treatment [address] [phone] Odilia Jeronimo, PT 08/08/2025 12:00 PM EDT Treatment [address] [phone] Rome Cronin, DIRECTOR OF VOCATIONAL GUIDANCE 08/12/2025 2:00 PM EDT Treatment [address] [phone] Braulio Byrne, DIRECTOR OF VOCATIONAL GUIDANCE 08/14/2025 2:00 PM EDT Treatment [address] [phone] Braulio Byrne, DIRECTOR OF VOCATIONAL GUIDANCE 08/20/2025 1:30 PM EDT Treatment [address] [phone] Shamar Jeronimo, DIRECTOR OF VOCATIONAL GUIDANCE 08/22/2025 1:30 PM EDT Treatment [address] [phone] Dean Lopez, DIRECTOR OF VOCATIONAL GUIDANCE 08/26/2025 1:00 PM EDT Treatment [address] [phone] Odilia Jeronimo, PT 08/28/2025 2:00 PM EDT Treatment [address] [phone] Odilia Jeronimo, PT Health Maintenance Due Date Last Done Comments Cervical Cancer Screening: Pap Smear 2001 Colorectal Cancer Screening: Colonoscopy 10/09/2022 Medicare Annual Wellness Visit 10/09/2022 Social Influencers of Health Screening 10/09/2022 Depression Screening 11/06/2024 COVID-19 Vaccine ( season) 2025 06/22/2022, 08/12/2021, 07/15/2021 Influenza Vaccine (#1) 2025 , 07/25/2023, 07/21/2022, Additional history exists Breast Cancer Screening 01/09/2027 01/10/20, 12/14/2023, 12/06/2022 DTaP,Tdap,and Td Vaccines (3 - Td or Tdap) 10/23/2028 10/23/2018, 08/07/2015 Cholesterol Screening (Lipid Panel) 03/13/2030 03/13/2025, 03/13/2025, 09/11/2023, Additional history exists RSV Immunization Adult Patients (1 - 1-dose 75+ series) 2055 HIV Screening Completed 10/26/2018 Hepatitis B Vaccines Completed 04/14/2023, 03/17/20 23 Pneumococcal Vaccine: Pediatrics (0 to 5 Years) and At-Risk Patients (6 to 49 Years) Aged Out 06/19/2023, 10/23/2018 No longer eligibl e based on patient's age to complete this topic Hepatitis C Screening Completed 03/13/2025 HIB Vaccines Aged Out No longer eligi [...] AM EST No mammographic evidence of malignancy. No suspicious interval change. A negative mammogram in the presence of a clinically suspicious palpable abnormality does not preclude the possibility of malignancy or alter the indications for biopsy. ASSESSMENT: BI-RADS 2: BENIGN RECOMMENDATION(S): 1: Routine screening mammogram BILATERAL in 1 year. [facility] [address], [address] -------- FINAL REPORT -------- Dictated By: Edwin Sim Dictated Date: 01/09/2025 11:28 ET Assigned Physician: Edwin Sim Reviewed and Electronically Signed By: Edwin Sim Signed Date: 01/09/2025 11:37 ET Workstation ID: [id number] Transcribed By: Self Edit Transcribed Date: 01/09/2025 11:28 ET Narrative 01/09/2025 11:37 AM EST EXAM: SCREENING MAMMOGRAPHY, BILATERAL HISTORY: SCREENING. No additional history. COMPARISON: 12/14/2023, 12/06/2022 TECHNIQUE: Synthesized CC and MLO projections of each breast. Tomosynthesis of each breast in the CC and MLO projections. ADDITIONAL IMAGING: None Computer-aided detection was employed with the [employer] AI 3-D. TISSUE DENSITY: The breasts are heterogeneously dense, which may obscure small masses. (BI-RADS category C) FINDINGS: RIGHT BREAST: No suspicious mass. No suspicious calcification. No distortion. No additional suspicious right breast findings LEFT BREAST: No suspicious mass. No suspicious calcification. No distortion. Typically benign calcification associated with a nonenlarged left axillary lymph node. Procedure Note Edwin Sim MD - 01/09/2025 EXAM: SCREENING MAMMOGRAPHY, BILATERAL HISTORY: SCREENING. No additional history. COMPARISON: 12/14/2023, 12/06/2022 TECHNIQUE: Synthesized CC and MLO projections of each breast.Tomosynthesis of each breast in the CC and MLO projections. ADDITIONAL IMAGING: None Computer-aided detection was employed with the [employer] AI 3-D. TISSUE DENSITY: The breasts are [...] year. [facility]amm[facility] location[facility] [address], [address] -------- FINAL REPORT -------- Dictated By: Edwin Sim Dictated Date: 01/09/2025 11:28 ET Assigned Physician: Edwin Sim Reviewed and Electronically Signed By: Edwin Sim Signed Date: 01/09/2025 11:37 ET Workstation ID: [id number] Transcribed By: Self Edit Transcribed Date: 01/09/2025 11:28 ET us Self Referral Sppl IMG BI PROCEDURES Final Resul t from Last 3 Months or Most Recently Relevant to Health Maintenance [place] [address] [place] [address] MEDICARE Member Subscriber Plan / Payer (Ef fective 2018-Present) Name:PRATIBHA RILEY Relation to Subscriber:Self Name:Pratibha Rowell Payer ID:[id number] Group ID:[id number] Type:Not on file Address: [place] [address] [address] [phone] Care Teams [employer] Relationship Specialty Start Date End Date Salinas Ang PA [address] [place] [address] PCP - General 11/23/22
== END 2025-08-01 15:17 | disposition home or self-care (01) ==
LOC: HO.HNS 14:26
PROVIDERS: PCP Physician Assistant; Visit Provider Physician Assistant
DX: M54.12 Radiculopathy, cervical region (principal); M48.061 Spinal stenosis, lumbar region without neurogenic claudication
CPT/HCPCS: 99213

== ENCOUNTER → 2025-08-01 14:26 | Outpatient (BNVA) | payer OTHER, SELFPAY | PROVIDERS: PCP Physician Assistant; Visit Provider Physician Assistant | DX: M54.12 Radiculopathy, cervical region (principal); M48.061 Spinal stenosis, lumbar region without neurogenic claudication | CPT/HCPCS: 99212 ==